=== PATIENT | female | born 1955 | race Caucasian/White ===

== ENCOUNTER 2020-12-01 03:14 | Inpatient (IN) | payer MEDICAID ==
[~2020-12-01] VITALS: Ht 160 cm; Wt 51.4 kg
[2020-12-01] VITALS (365 sets, daily range): BP systolic 113–144; BP diastolic 60–79; PULSE 73–76; TEMP 97.4–98.6; O2SAT 96–100
[~2020-12-01 03:14] MED LIST: ADVAIR 250/28 DISKUS IH; ADVAIR IH; ALBUTEROL0.09 MG/A1 IH; BACTRIM DS 8001 TAB PO; CATAPRES-TTS 10.1 M1 TD; CLEOCIN HCL300 MG PO; DOXYCYCLINE 10100 MG PO; HCTZ; HCTZ 25MG TAB25 MG PO; HCTZ12.5TAB PO; INCRUSE EL62.5 MCG/A IH; IPRATROPIUM BROM3 M1 IH; LISINOPRIL/HCTZ1 TA1 PO; LISINOPRIL/HCTZ1 TAB PO; MEDROL 4MG DOSPA4 MG PO; MUCINEX1200 MG PO; NEB MC; NICODERM C14 MG/PATC TD; NORCO 325 MG-51 TAB PO; NORVASC 5MG5 MG/TAB PO; PREDNISONE10 MG PO; PREDNISONE20 MG PO; PROAIR HFA0.09 MG/AC IH; RT ADVAIR HFA 1112 G IH; TAMIFLU 75MG75 MG PO; ZESTORETIC 25 M1 TAB PO; ZESTRIL 20MG TA20 MG PO; ZESTRIL40 MG PO; [UNRECOGNIZED DRUG - OTHER]
[2020-12-01 03:42] LABS: HEMOGLOBIN 12.3 g/dl (12.5-16.0); MEAN CELL VOLUME 92 fl (80.0-100.0); MEAN CORPUSCULAR HEMOGLOBIN 28 pg (27.0-31.0); MEAN CORPUSCULAR HGB CONC 30 g/dl (33.0-37.0); MEAN PLATELET VOLUME 9.8 fl (7.4-10.4); PLATELET COUNT 522 K/mm3 (130-400); RED BLOOD COUNT 4.48 M/mm3 (4.10-5.30); REDCELL DISTRIBUTION WIDTH-CV 14.6 % (11.5-14.5)
[2020-12-01 03:50] LABS: PROTHROMBIN TIME 11.3 SECONDS (9.7-12.8)
[2020-12-01 03:53] LABS: ALBUMIN 4.5 gm/dL (3.5-5.0); BILIRUBIN,TOTAL 0.5 mg/dL (0.0-1.0); CALCIUM 9.5 mg/dL (8.4-10.2); CREATININE, serum 1.29 (0.52-1.25); POTASSIUM 3.3 mmol/L (3.4-5.0); TOTAL PROTEIN 7.9 gm/dL (6.4-8.2)
[2020-12-01 04:00] LABS: EOSINOPHIL 4 % (0-4); HYPOCHROMIA 3+; LYMPHOCYTE 22 % (20.0-51.0); NEUTROPHILS 65 % (42.0-75.2); PLATELET ESTIMATE INCREASED (NORMAL)
[2020-12-01 04:02] LABS: SCHISTOCYTES 1+
[2020-12-01 04:04] LABS: C-REACTIVE PROTEIN 1.1 mg/dL (0.0-0.9)
[2020-12-01 04:10] LABS: TROPONIN-I 0.063 ng/mL (0.000-0.035)
[2020-12-01 04:15] LABS: COLLECTION METHOD IN
[2020-12-01 04:22] LABS: MUCOUS Present /lpf; PH 6 (5-8); URINE APPEARANCE Cloudy; URINE BACTERIA None Seen /hpf; URINE BILIRUBIN Negative (NEGATIVE); URINE BLOOD 1+ (NEGATIVE); URINE COLOR Yellow; URINE GLUCOSE 2+ (NEGATIVE); URINE KETONE Negative (NEGATIVE); URINE LEUKOCYTE ESTERASE Negative (NEGATIVE); URINE NITRATE Negative (NEGATIVE); URINE PROTEIN(semi-quant) 3+ (NEGATIVE); URINE RBC 20-50 /hpf; URINE UROBILINOGEN Negative (NEGATIVE)
[2020-12-01 04:29] LABS: ARTERIAL BLD GAS O2 SATURATION 96.1 % (92-100); ARTERIAL BLD GAS TCO2 CT 21.8; ARTERIAL BLOOD GAS HCO3 20.6 meq/L (22-26); ARTERIAL BLOOD GAS PCO2 40.1 mmHg (35-45); ARTERIAL BLOOD GAS PO2 86.2 mmHg (80-100); ARTERIAL BLOOD GAS pH 7.33 (7.35-7.45)
[2020-12-01] MEDS ORDERED: 00186-0370-20 IH (05:43)
[2020-12-01 09:50] LABS: BASO % 0.3 % (0.0-2.0); EOS % 0.1 % (0-4.0); GRAN % 83.6 % (42.2-75.2); HEMOGLOBIN 11.1 g/dl (12.5-16.0); LYMPH % 6.6 % (20.0-51.0); MEAN CELL VOLUME 88 fl (80.0-100.0); MEAN CORPUSCULAR HEMOGLOBIN 28 pg (27.0-31.0); MEAN CORPUSCULAR HGB CONC 32 g/dl (33.0-37.0); MEAN PLATELET VOLUME 9.9 fl (7.4-10.4); MONO # 1.4 (0.1-0.6); MONO % 9.1 % (1.7-9.3); RED BLOOD COUNT 4.01 M/mm3 (4.10-5.30); REDCELL DISTRIBUTION WIDTH-CV 14.4 % (11.5-14.5)
[2020-12-01 10:03] LABS: HEMATOCRIT 35.1 % (37.0-47.0); PLATELET COUNT 357 K/mm3 (130-400)
[2020-12-01 10:06] LABS: PARTIAL THROMBOPLASTIN TIME 26.3 SECONDS (26.0-37.0)
--- NOTE | 2020-12-01 10:30 | NUR ---
Sedation resumed at previous dosages per MD Acosta d/t aggitation and inability to follow all commands. Plan to discontinue sedation tomorrow morning at 0500 with precedex on standby for aggitation if required for weaning trial
--- NOTE | 2020-12-01 10:33 | NUR ---
First visit from the spindle frame carver. Chaplain shaffer for patient outside of door.
--- NOTE | 2020-12-01 11:25 | NUR ---
The patient is intubated. The clinical team attempted to extubate the patient, but she continues to be agitated and confused. They will reattempt tomorrow. The patient's life partner, Rey Baldwin, is listed as her person to notify. There is not a phone number on file for Rey. GABY contacted ENT and [facility] to try and inquire emergency contact phone numbers for the patient. These clinics were on file for the patient. The phone numbers they had on file were no longer Rey's or other family members phone numbers. GABY collaborated with the patient's RN and obtained the patient's phone. GABY obtained phone numbers for the patient's sons: Ravin Arteaga (ph#[phone]) and Ry Arteaga ([phone]). GABY contacted [facility] to complete intake. Ravin reports that he lives in [place]. He confirms that the patient was in [place] visiting him and his siblings a couple weeks ago. He reports that the patient lives in [place] with his life partner, Rey, of 30 plus years. He reports that the patient is independent with ADLs and does not have any DME. He states that he does not think that the patient has a PCP or a DPOA-HC completed. He reports that the patient is not and that she has four children: Ravin, Mitchell Hairston, Butch, and Andrey. They all live around [place], [place]. Ravin reports that the patient has COPD and is always very agitated, because of it. He states that he also believes that the patient has had strokes in the past, but that she never followed up with anyone for it. Ravin would like to speak to the patient's RN for an update. GABY transferred the call to the patient's RN. The patient's life partner, Rey, then contacted the ICU. The patient's RN transferred SW the phone call. Rey reports that he does not have a working phone. He reports that a friend, Juan M, is staying with them right now and that the hospital could call Juan M's phone to get ahold of him. . He confirms that the patient lives with him in [place] and has been independent. He is only aware of the patient following up with Dr. Ivory. He reports that be believes that the patient has a DPOA-HC and that she designated her other son, Mitchell. He reports that he does not have a copy of the document. Rey reports that he believes that the patient only has Medicaid. He reports that the patient received something in the mail a couple days ago, stating the patient was eligible for Medicare, but that she has not applied for it yet. GABY contacted Mitchell to inquire about the DPOA-HC. Mitchell reports that he believes the patient did complete a DPOA-HC awhile ago and designated him. He reports that he does not have a copy of the DPOA-HC though. GABY informed him that until we have that document, the patient's legal next of kin is all four of her children. Mitchell verbalized understanding. GABY updated the patient's RN on who next of kin is. *Discharge plan: unknown at this time, will continue to follow for recommendations*
[2020-12-01 11:35] LABS: ARTERIAL BLD GAS O2 SATURATION 98.4 % (92-100); ARTERIAL BLD GAS TCO2 CT 25.3; ARTERIAL BLOOD GAS BASE EXCESS 0.7 (-2-2); ARTERIAL BLOOD GAS HCO3 24.3 meq/L (22-26); ARTERIAL BLOOD GAS PCO2 35.3 mmHg (35-45); ARTERIAL BLOOD GAS PO2 110.7 mmHg (80-100); ARTERIAL BLOOD GAS pH 7.46 (7.35-7.45)
[2020-12-02] VITALS (725 sets, daily range): BP systolic 110–162; BP diastolic 57–104; PULSE 54–511; TEMP 97.2–99; O2SAT 87–100
[2020-12-02 03:45] LABS: PROCALCITONIN 2.03 ng/mL (0.00-0.09)
[2020-12-02 05:19] LABS: MEAN CELL VOLUME 88 fl (80.0-100.0); MEAN CORPUSCULAR HEMOGLOBIN 28 pg (27.0-31.0); MEAN CORPUSCULAR HGB CONC 32 g/dl (33.0-37.0); MEAN PLATELET VOLUME 10.1 fl (7.4-10.4); PLATELET COUNT 375 K/mm3 (130-400); RED BLOOD COUNT 3.55 M/mm3 (4.10-5.30)
[2020-12-02 05:26] LABS: HEMATOCRIT 31.1 % (37.0-47.0)
[2020-12-02 05:28] LABS: ALBUMIN 3.2 gm/dL (3.5-5.0); BILIRUBIN,TOTAL 0.2 mg/dL (0.0-1.0); CALCIUM 8.6 mg/dL (8.4-10.2); CREATININE, serum 2.42 (0.52-1.25); POTASSIUM 4.2 mmol/L (3.4-5.0)
[2020-12-02 05:35] LABS: ARTERIAL BLD GAS O2 SATURATION 98.5 % (92-100); ARTERIAL BLOOD GAS BASE EXCESS 1.1 (-2-2); ARTERIAL BLOOD GAS HCO3 24.8 meq/L (22-26); ARTERIAL BLOOD GAS PCO2 36.2 mmHg (35-45); ARTERIAL BLOOD GAS PO2 129.9 mmHg (80-100); ARTERIAL BLOOD GAS pH 7.45 (7.35-7.45)
[2020-12-02 05:41] LABS: TROPONIN-I 0.666 ng/mL (0.000-0.035)
[2020-12-02 05:43] LABS: MAGNESIUM 1.9 mg/dL (1.6-2.3)
[2020-12-02 05:51] LABS: ANISOCYTOSIS 1+; BAND 2 % (0-10); HYPOCHROMIA 1+; LYMPHOCYTE 8 % (20.0-51.0); NEUTROPHILS 82 % (42.0-75.2); PLATELET ESTIMATE NORMAL (NORMAL)
--- NOTE | 2020-12-02 08:08 | NUR ---
PROPOFOL AND FENT SLOWLY TITRATED PER INTESNSIVIST. PRECEDEX STARTED FOR HX OF AGITATION. PATIENT BREATHING WITH VENT UNTIL STIMULATED. PT BECAME AGITATED STAFF TRIED TO WAKE HER TO DO A BREATHING TRIAL THIS AM.
--- NOTE | 2020-12-02 09:00 | NUR ---
Since before arriving for shift, propofol and fentanyl paused with precedex infusing at 1.0mcg/kg/hr with ventilator on weaning trial. Pt having periods of severe aggiation with RR:40-50 and calm periods with RR:14-18 with good indications for extubation. MD Anai and MD Acosta agreed d/t pt's aggitation pt would be safer if kept on ventilator for cardiac cathertization - and therefore no weaning trial this after noon but to be completed tomorrow morning. Sedation resumed at this time at prior dosages per MD Acosta
--- NOTE | 2020-12-02 10:07 | NUR ---
Pt tolerated transport to cathlab, procedure, and trasport back to ICU without difficulty - transport staff: RT Delaney, Alexandrea,RN and myself. Continuous IV sedation maintained during procedure without need for additional sedation.
--- NOTE | 2020-12-02 19:30 | NUR ---
Received report from HUEY Jerez. All medications verified and all questions answered. Patient intubated and sedated. VSS. No concerns or complaints noted at this time. Will resume care of patient.
--- NOTE | 2020-12-02 20:00 | NUR ---
Unable to complete suicide risk assessment screening d/t patient being intubated and sedated.
--- NOTE | 2020-12-02 23:00 | NUR ---
Last remaining 3mls released out of TR band and TR band taken off 15 minutes after releasing remaining 3mls of air. No hematoma noted. Puncture site has bandaid placed on top of site. Appears CDI.
[2020-12-03] VITALS (450 sets, daily range): BP systolic 129–252; BP diastolic 62–131; PULSE 55–109; TEMP 97.5–99; O2SAT 89–100
[2020-12-03 05:17] LABS: BASO # 0.1 (0.0-0.2); BASO % 0.6 % (0.0-2.0); EOS # 0.1 (0.0-0.7); EOS % 0.6 % (0-4.0); GRAN # 5.2 (1.4-6.5); GRAN % 57.1 % (42.2-75.2); LYMPH # 2.2 (1.2-3.4); LYMPH % 24.8 % (20.0-51.0); MEAN CELL VOLUME 86 fl (80.0-100.0); MEAN CORPUSCULAR HGB CONC 32 g/dl (33.0-37.0); MEAN PLATELET VOLUME 10.5 fl (7.4-10.4); MONO # 1.5 (0.1-0.6); MONO % 16.6 % (1.7-9.3); PLATELET COUNT 289 K/mm3 (130-400); RED BLOOD COUNT 3.42 M/mm3 (4.10-5.30); REDCELL DISTRIBUTION WIDTH-CV 15.5 % (11.5-14.5)
[2020-12-03 05:20] LABS: HEMATOCRIT 29.4 % (37.0-47.0); HEMOGLOBIN 9.4 g/dl (12.5-16.0); MEAN CORPUSCULAR HEMOGLOBIN 27 pg (27.0-31.0)
[2020-12-03 05:34] LABS: ARTERIAL BLD GAS O2 SATURATION 98.6 % (92-100); ARTERIAL BLD GAS TCO2 CT 22.2; ARTERIAL BLOOD GAS BASE EXCESS -2.1 (-2-2); ARTERIAL BLOOD GAS HCO3 21.2 meq/L (22-26); ARTERIAL BLOOD GAS PCO2 31.4 mmHg (35-45); ARTERIAL BLOOD GAS pH 7.45 (7.35-7.45)
[2020-12-03 05:35] LABS: ARTERIAL BLOOD GAS PO2 137.3 mmHg (80-100)
[2020-12-03 05:37] LABS: ALBUMIN 3.3 gm/dL (3.5-5.0); BILIRUBIN,TOTAL 0.3 mg/dL (0.0-1.0); CALCIUM 8.5 mg/dL (8.4-10.2); CREATININE, serum 2.95 (0.52-1.25); POTASSIUM 3.6 mmol/L (3.4-5.0); TOTAL PROTEIN 6.2 gm/dL (6.4-8.2)
[2020-12-03 05:41] LABS: MAGNESIUM 2.1 mg/dL (1.6-2.3)
--- NOTE | 2020-12-03 05:57 | NUR ---
Fentanyl and propofol gtts shut off for sedation vacation. Precedex started at 2.5mls/hr. Patient appears drowsy and calm. VSS.
--- NOTE | 2020-12-03 06:29 | NUR ---
Patient propofol and fentanyl gtts restarted d/t patient becoming increasingly agitated and HR tachying up into the 100-110s. BP increasing d/t agitation and raning 215-241 systolic to 112-131 diastolic. Precedex increased to 5.1mls/hr while trying to titrate sedation medication down.
--- NOTE | 2020-12-03 07:00 | NUR ---
Pt is intubated, on propofol, fent, precedex. Attempting to wean sedation for vent weaning trial but bp elevated in the 200's. Will continue to monitor
--- NOTE | 2020-12-03 09:30 | NUR ---
PRECEDEX DOWN TO 0.7 MCG/KG/MIN PER /
[2020-12-03 10:43] LABS: ARTERIAL BLD GAS O2 SATURATION 96.6 % (92-100); ARTERIAL BLD GAS TCO2 CT 22.6; ARTERIAL BLOOD GAS BASE EXCESS -3.8 (-2-2); ARTERIAL BLOOD GAS HCO3 21.4 meq/L (22-26); ARTERIAL BLOOD GAS PCO2 39.7 mmHg (35-45); ARTERIAL BLOOD GAS PO2 95.2 mmHg (80-100); ARTERIAL BLOOD GAS pH 7.35 (7.35-7.45)
--- NOTE | 2020-12-03 11:31 | NUR ---
0815-SEDATION OFF PER . PRECEDEX STILL RUNNING. 0843-PT OPENS EYES AND FOLLOWS COMMANDS. PT PLACED ON CPAP TRIAL. PT'S BP ELEVATED IN THE 200'S. AWARE. ORDER TO GIVE PRN IV HYDRALAZINE. 0850-PT EXTUBATED WITHOUT COMPLICATION AND PLACED ON OXYMASK. PT IS LETHARGIC BUT ABLE TO FOLLOW COMMANDS. WILL CONTINUE TO MONITOR CLOSELY.
--- NOTE | 2020-12-03 11:34 | NUR ---
0915-PTS BP STILL ELEVATED. ORDER RECEIVED FOR LABETOLOL DRIP. 1030- ORDERS FOR PO LABETOLOL, PRN HYDRALAZINE, AND LASIX. MEDS GIVEN AND LABETOLOL DRIP STOPPED. PT IS STILL LETHARGIC AND RESTLESS. PT'S SON STATES THIS IS HER BASELINE. SHE IS NORMALLY NOT ABLE TO COMMUNICATE WELL, IS RESTLESS AND AGITATED. SON BEDSIDE. BEDALARM ACTIVE. WILL CONTINUE TO [facility]. 1120-PALLATIVE CARE CONSULT.
--- NOTE | 2020-12-03 14:12 | NUR ---
I met with pt and her son Ravin at bedside this morning. Pt appears agitated at times, her speech is limited and at times difficult to understand. Her son Ravin reports to me that her sons and brother have all talked with each other and he reports that they would not want her re-intubated if her situation should worsen again. At this time the patient spoke up and clearly stated "I want to live".Then son asked if she would want the tube put back even if it meant she could never go home, she replied "yes". When questioned, Ravin reports that how we see her now is her normal. Two weeks ago when he saw her in [place], she was like this as well. She has not behaved differently for some time. Ravin reports he questions if his mother has had a stroke in the past. She has not been good about seeking health care support. She has lived with Rey Baldwin for almost 30 years. Her sons and brother are hoping to take her home with them to [place] once she is considered stable enough for the trip. Ravin again verbalized that he didn't believe that Anca really understood what being placed back on the vent would mean. Ravin's phone number is [phone], Ry (Mitchell) phone # is [phone], and Butch's phone # is [phone]. Their brother Andrey does not have a phone but Ravin reports that the family can get ahold of him if needed. This information was shared with Alissa in social work and with Tayler ARZATE primary nurse.
--- NOTE | 2020-12-03 14:26 | NUR ---
Pt has several dogs and enjoys watching TV. These are the things that her son reports gives her pleasure. She is not active outside the home a lot.
--- NOTE | 2020-12-03 15:49 | NUR ---
The patient has been extubated. A palliative care consult was ordered. Yazmin, palliative care nurse, met with the patient and her son, Ravin. The patient informed Yazmin that she wants to live. Ravin reports that her level of functioning now is her normal and that she has a lot of anxiety. Ravin would like to take the patient back home to [place]. Ravin provided Yazmin with his brother, Hamzah, phone number [phone]. The fourth brother, Andrey, does not have a phone, but they are able to get ahold of him. GABY met with the patient, Ravin, and the patient's life partner and introduced oneself. Ravin reports that they would like to see how the patient does these next couple of days before deciding on direction of care. GABY to continue to follow.
--- NOTE | 2020-12-03 18:49 | NUR ---
SPOKE WITH NEL PULIDO REGARDING PT'S BP IN THE 190'S AFTER PRN HYDRALAZINE AND PRN LABETALOL. STATES SHE WILL REVEIW CHART.
[2020-12-03 20:17] LABS: ARTERIAL BLD GAS O2 SATURATION 94.2 % (92-100); ARTERIAL BLD GAS TCO2 CT 21.2; ARTERIAL BLOOD GAS HCO3 20.1 meq/L (22-26); ARTERIAL BLOOD GAS PCO2 33.5 mmHg (35-45); ARTERIAL BLOOD GAS PO2 73.4 mmHg (80-100)
--- NOTE | 2020-12-03 21:28 | NUR ---
2015: Assessment completed. Patient voiced need to urinate. Patient unsuccessful x5 tries since 1930. Patient bladder scanned and 612 in bladder. Patient also voicing nausea. Spoke with TESS Tee. Orders for zofran and to insert sevilla given and also add UA. 2019. Zofran given and sevilla inserted. Patient had 550ml of urine out in sevilla. UA sent. Patient given pills crushed in applesause. Patient swallowed on bite and spit other bite on bed. Patient reported she cannot take these medications and to give her something else. Patient BP at 1930 227/103 at 194 199/80. After sevilla insertion and zofran adminstration BP now 156/66. Patient resting in bed comfortably. Precedex gtt decreased. Call light in reach. Bed alarm in place.
[2020-12-03 21:47] LABS: COLLECTION METHOD IN
[2020-12-03 21:54] LABS: PH 5 (5-8); SQUAMOUS EPITHELIAL None Seen /hpf; URINE APPEARANCE Clear; URINE BACTERIA None Seen /hpf; URINE BILIRUBIN Negative (NEGATIVE); URINE BLOOD 2+ (NEGATIVE); URINE COLOR Straw; URINE GLUCOSE Negative (NEGATIVE); URINE KETONE Negative (NEGATIVE); URINE LEUKOCYTE ESTERASE Negative (NEGATIVE); URINE NITRATE Negative (NEGATIVE); URINE PROTEIN(semi-quant) Negative (NEGATIVE); URINE RBC >50 /hpf; URINE UROBILINOGEN Negative (NEGATIVE)
--- NOTE | 2020-12-03 22:57 | NUR ---
Patient placed on 1.5 liters for oxygen saturations 86% while sleeping
[2020-12-04] VITALS (692 sets, daily range): BP systolic 123–169; BP diastolic 51–97; PULSE 63–74; TEMP 97.1–98.3; O2SAT 84–100
[2020-12-04 06:28] LABS: POTASSIUM 3.6 mmol/L (3.4-5.0)
--- NOTE | 2020-12-04 07:29 | NUR ---
Patient continued on precedex throughout night, awake and alert. Patient resting in bed this AM. Call light in reach. Report given to HUEY Mar
[2020-12-04 08:04] LABS: BASO % 0.3 % (0.0-2.0); EOS % 0.4 % (0-4.0); GRAN # 7.8 (1.4-6.5); GRAN % 75.6 % (42.2-75.2); LYMPH # 0.9 (1.2-3.4); LYMPH % 9.1 % (20.0-51.0); MEAN CELL VOLUME 88 fl (80.0-100.0); MEAN CORPUSCULAR HEMOGLOBIN 28 pg (27.0-31.0); MEAN CORPUSCULAR HGB CONC 32 g/dl (33.0-37.0); MEAN PLATELET VOLUME 10.9 fl (7.4-10.4); MONO # 1.5 (0.1-0.6); MONO % 14.4 % (1.7-9.3); PLATELET COUNT 266 K/mm3 (130-400); RED BLOOD COUNT 3.53 M/mm3 (4.10-5.30); REDCELL DISTRIBUTION WIDTH-CV 15.7 % (11.5-14.5)
[2020-12-04 08:05] LABS: HEMATOCRIT 31.2 % (37.0-47.0)
[2020-12-04 08:09] LABS: CREATININE, serum 2.45 (0.52-1.25); POTASSIUM 3.8 mmol/L (3.4-5.0)
--- NOTE | 2020-12-04 10:36 | NUR ---
SW collaborated with the clinical team. A psych consult has been ordered to determine capacity. The psychiatrist, Dr. Al, is damage prevention coordinator this weekend.
--- NOTE | 2020-12-04 10:38 | NUR ---
I spoke with pt today at bedside. She has the same manner as yesterday. She has a blank looking stare although will speak a few words in response to questions. She is still drooling at times and seems confused by her current situation. I did speak with Dr Graff about a capacity determination when appropriate as I am questioning her ability to really understand her situation and make her own decisions. She is currently on precedex but will hope to have evaluation later on to help clarify her situation.
--- NOTE | 2020-12-04 13:25 | NUR ---
PT SOMEWHAT COMBATIVE AND DID NOT WANT TX. WOULD NOT KEEP MASK OVER FACE. TOOK MAYBE HALF OF TX BEFORE SHOVING MASK AND RT AWAY.
--- NOTE | 2020-12-04 16:36 | NUR ---
patient report given to HUEY Arce.
--- NOTE | 2020-12-04 17:19 | NUR ---
Patient to room 325 from ICU 3. Family at the bedside. Nurse oriented the patient and family to location, room and call light. Assessment complete. Patient A&Ox3. Denies pain and discomfort. IV CDI. VSS 1.5L NC O2. No reported SOB. Family assisting patient with eatting dinner. No further needs expressed from the patient. Call light within reach
--- NOTE | 2020-12-04 17:47 | NUR ---
Patient sitting up in bed talking with family at the bedside. Nurse reordered the patient dinner, states that she did not like the food brought up. IV CDI. A&Ox3. Denies pain and discomfort. No further needs expressed from the patient. Call light within reach
--- NOTE | 2020-12-04 19:30 | NUR ---
PT RESTING PERIODICALLY. NO RESP DISTRESS. O2 0.5L. SATS 95%. PT SPEECH DIFFICULT TO UNDERSTAND. POOR DENTATION. SLOW MENTATION BUT ORIENTED. INT NEEDLE TO LT F/A INFILTRATED AND DC'D AT THIS TIME. INT TO RAC FLUSHES AND RESECURED. CALL LIGHT IN REACH. BED ALARM SET.
--- NOTE | 2020-12-04 19:45 | NUR ---
PT ANXIOUS. GAVE ATIVAN PER IV. SEE MAR.
[2020-12-04 20:56] LABS: TRICYCLIC ANTIDEPRESS URINE NEGATIVE
--- NOTE | 2020-12-04 22:15 | NUR ---
PT DOWN TO CT PER BED. PT CLIMBING OFF CT TABLE. REFUSED AFTER SEVERAL ATTEMPTS. PT BROUGHT BACK TO ROOM.
[2020-12-05 01:06] VITALS: BP 162/88; PULSE 66; TEMP 97.5
[2020-12-05 04:27] VITALS: BP 194/79; PULSE 69; TEMP 98.4
[2020-12-05 08:16] VITALS: BP 204/69; PULSE 76; TEMP 98.6
--- NOTE | 2020-12-05 08:40 | NUR ---
TX REFUSED BY FAMILY; PT SLEEPING
--- NOTE | 2020-12-05 10:00 | NUR ---
Patient Bp elevated. Am meds given. [facility] team made aware. Patient family at bedside. She has sat up in chair this am , worked with therapy. Ate a small amount of breakfast. Will monitor.
[2020-12-05 10:57] LABS: MEAN CELL VOLUME 87 fl (80.0-100.0); MEAN CORPUSCULAR HGB CONC 32 g/dl (33.0-37.0); PLATELET COUNT 336 K/mm3 (130-400); RED BLOOD COUNT 3.57 M/mm3 (4.10-5.30); REDCELL DISTRIBUTION WIDTH-CV 15.4 % (11.5-14.5)
[2020-12-05 11:02] LABS: HEMATOCRIT 31.1 % (37.0-47.0); HEMOGLOBIN 9.9 g/dl (12.5-16.0); MEAN CORPUSCULAR HEMOGLOBIN 28 pg (27.0-31.0)
[2020-12-05 11:10] LABS: CALCIUM 8.8 mg/dL (8.4-10.2); CREATININE, serum 1.72 (0.52-1.25); POTASSIUM 3.5 mmol/L (3.4-5.0)
[2020-12-05 11:48] LABS: LYMPHOCYTE 11 % (20.0-51.0); NEUTROPHILS 77 % (42.0-75.2)
[2020-12-05 11:49] LABS: ANISOCYTOSIS 1+; PLATELET ESTIMATE NORMAL (NORMAL)
[2020-12-05 11:50] LABS: HYPOCHROMIA 2+
[2020-12-05 12:02] VITALS: BP 162/55; PULSE 66; TEMP 97.9
--- NOTE | 2020-12-05 12:20 | NUR ---
Patient resting in bed. Family at bedside. Bp improvided, but still elevated. Bp meds as ordered. Medication adjustement made by [facility]. Ate a small amount of lunch.
[2020-12-05 16:12] VITALS: BP 174/62; PULSE 71; TEMP 97.6
--- NOTE | 2020-12-05 16:31 | NUR ---
SW attempted to have POA PPW but patient report that she cannot sign, educated that she must sign the paperwork.
--- NOTE | 2020-12-05 16:56 | NUR ---
Patient resting in bed. Up to bedside commode post sevilla removal. She voided a very small amount. Patient noted to have a very strong vaginal odor. White discharge seen. Dr. Graff made aware of possible yeast infection. I did again speak with patient about Ct scan ordered. She is addement & refusing. I reviewed Heparin injection with patient. Bp meds given for continued elevated Bp. Will continue to monitor
--- NOTE | 2020-12-05 18:59 | NUR ---
Patient resting in bed. She ate minimally. Provided with warm blanket for comfort. Bedside report to Mary ARZATE.
--- NOTE | 2020-12-05 19:15 | NUR ---
SEE NEW ORDER FOR PO LORAZEPAM. SEE MAR GIVEN. PT ANXIOUS AND GETTING IMPULSIVE.
--- NOTE | 2020-12-05 19:46 | NUR ---
PT NOT AGEEABLE TO MONOSTAT VAG CREAM. SHEREE OG NOTIFIED. SEE NEW ORDER.
[2020-12-05 19:51] VITALS: BP 152/96; PULSE 78; TEMP 98
--- NOTE | 2020-12-05 21:35 | NUR ---
PT WOULD NOT KEEP NEBULIZER MASK IN PLACE.
[2020-12-06 00:44] VITALS: BP 157/58; PULSE 68; TEMP 98.2
[2020-12-06 03:32] VITALS: BP 138/69; PULSE 68; TEMP 98.2
[2020-12-06 06:29] LABS: BASO % 0.3 % (0.0-2.0); EOS # 0.1 (0.0-0.7); EOS % 1.7 % (0-4.0); GRAN # 4.3 (1.4-6.5); GRAN % 64.7 % (42.2-75.2); LYMPH # 1.1 (1.2-3.4); LYMPH % 17.4 % (20.0-51.0); MEAN CELL VOLUME 89 fl (80.0-100.0); MEAN CORPUSCULAR HGB CONC 32 g/dl (33.0-37.0); MEAN PLATELET VOLUME 10.2 fl (7.4-10.4); MONO % 15.7 % (1.7-9.3); PLATELET COUNT 306 K/mm3 (130-400); RED BLOOD COUNT 3.26 M/mm3 (4.10-5.30); REDCELL DISTRIBUTION WIDTH-CV 15.6 % (11.5-14.5)
[2020-12-06 06:35] LABS: HEMATOCRIT 28.9 % (37.0-47.0); HEMOGLOBIN 9.1 g/dl (12.5-16.0); MEAN CORPUSCULAR HEMOGLOBIN 28 pg (27.0-31.0)
[2020-12-06 06:37] LABS: CALCIUM 8.8 mg/dL (8.4-10.2); CREATININE, serum 1.45 (0.52-1.25); POTASSIUM 3.2 mmol/L (3.4-5.0)
[2020-12-06 08:02] VITALS: BP 190/82; PULSE 43; TEMP 98.3
--- NOTE | 2020-12-06 08:30 | NUR ---
PT resting in bed. Ate some of her breakfast, pt appears to still be very sleepy. Assisted to the restroom. She wanted to use the commode, told her to try and walk to the restroom. She did well with one assist. No needs verbalized
[2020-12-06 12:29] VITALS: BP 155/59; PULSE 67; TEMP 98.4
--- NOTE | 2020-12-06 13:00 | NUR ---
Pt has continued to sleep the majority of the day. Her son was here earlier but has recently left.
--- NOTE | 2020-12-06 15:37 | NUR ---
Pt continues to sleep most of the time. Her son and partner are both in the room. Asked about antibiotics once she goes home. Dr Wagner ordered to stop antibiotics after the evening dose, informed them of this. They hope and plan to take pt home tomorrow. No other questions
[2020-12-06 15:41] VITALS: BP 165/65; PULSE 76; TEMP 98.7
--- NOTE | 2020-12-06 16:54 | NUR ---
Pt requesting her dinner, dinner ordered. She also asked if she could have a sleeping pill. Pt has been sleeping most of the day. Informed her that I would pass on to nights if she was not able to sleep. All visitors have left at this time
[2020-12-06 19:53] VITALS: BP 177/89; PULSE 72; TEMP 98.2
--- NOTE | 2020-12-06 21:00 | NUR ---
PT RESTING IN BED. NONPRODUCTIVE COUGH NOTED. STILL HAVING ODOROUS VAG DRG. DENIES PAIN. SEE MAR FOR LORAZEPAM GIVEN FOR ANXIETY. PT UP TO BR TO VOIDING SL HAZY YELLOW URINE. CALL LIGHT IN REACH. BED ALARM SET.
[2020-12-07 00:08] VITALS: BP 141/65; PULSE 65; TEMP 97.7
[2020-12-07 04:01] VITALS: BP 159/96; PULSE 95; TEMP 98.6
[2020-12-07 08:08] VITALS: BP 188/100; PULSE 71; TEMP 98.3
[2020-12-07 08:29] LABS: CALCIUM 9.1 mg/dL (8.4-10.2); CREATININE, serum 1.26 (0.52-1.25); POTASSIUM 3.7 mmol/L (3.4-5.0)
--- NOTE | 2020-12-07 09:24 | NUR ---
Patient up to the bathroom. Voided. Needs prompting to use walker. high fall risk protocol followed. Wanting to rest at this time. Her son at bedside. interested in discharge. Patient BP remains elevated. am meds given with sip of water. She has minimal interest in breakfast. k+ replacement per protocol. Will continue to moniotr, but let her rest.
[2020-12-07] MEDS ORDERED: LIPITOR 80MG80 MG PO (09:53)
[2020-12-07] MEDS ORDERED: APRESOLINE50 MG PO (09:53)
[2020-12-07] MEDS ORDERED: TRANDATE 200MG200 MG PO (09:54)
[2020-12-07] MEDS ORDERED: NORVASC 10MG10 MG PO (09:54)
[2020-12-07] MEDS ORDERED: ASPIRIN E.C. 8181 MG PO (09:54)
[2020-12-07] MEDS ORDERED: IMDUR 60MG60 MG/TAB PO (09:54)
[2020-12-07] MEDS ORDERED: CATAPRES 0.1MG0.1 MG PO (09:56)
[2020-12-07 12:08] VITALS: BP 160/59; PULSE 68; TEMP 97.4
--- NOTE | 2020-12-07 12:11 | NUR ---
Spoke with son and Anca today at bedside. They are anticipating discharge soon and pt and her other son will remain in here to allow her to get stronger and then she plans to return to [place] with her son. Pt reports that she will need a walker at discharge and thinks she has already talked with the staff about that.
--- NOTE | 2020-12-07 14:00 | NUR ---
Patient ready for discharge. Attempted to given extensive discharge teaching, but patient just wanting to leave. She was not interested in the information I provided. I did review paperwork with her son who is assisting with cares. We reviewed all follow up appts. (he plans to take her to the appts.) We reviewed home meds list & last dose taken. Son to tack picker scripts [facility]. I did stress with patient importance of only taking medication prescribed by doctor no other drugs and the importance of this. I reviewed soft diet. Int DC. Patient was wheeled out with all belongings. son taking her home. denies questions and concerns.
--- NOTE | 2020-12-07 14:06 | NUR ---
The patient to discharge home today, 12/07 with OP PT at [facility]. The OP PT appointment is set for , 12/10 at 1430. The patient to move to [place] with her son Ravin in approximately two weeks. The patient is needing a walker. The walker order faxed to [facility]. The patient's son Ravin agreeable to picking up the walker. The patient is on room air. The patient completed a DPOA-HC form. This SW and the patient's nurse witnessed. The patient designated her son, Ravin . The patient's new contact information is . GABY faxed updates and discharge orders to Smitha at [facility]. GABY collaborated the above information with the patient's nurse. There are no other needs at this time.
[2020-12-07 14:29] LABS: COCCIDIOIDES AB IGG Negative (Negative); COCCIDIOIDES AB IGM Negative (Negative); COCCIDIOIDES CF Negative (Negative)
== END 2020-12-07 15:38 | disposition home or self-care (01) | DRG 208 ==
LOC: COL.ER 03:15 → EDBD 03:15 → COL.ER 03:31 → ICU 04:48 → SURG 04:48
PROVIDERS: Emergency Medicine; Internal Medicine Adult Congenital Heart Disease; Internal Medicine Pulmonary Disease; Student in an Organized Health Care Education/Training Program; ADMIT Hospitalist
PROC: 0BH17EZ Insertion of Endotracheal Airway into Trachea, Via Natural or Artificial Opening (ICD-10-PCS; principal; 2020-12-01)
PROC: 5A1945Z Respiratory Ventilation, 24-96 Consecutive Hours (ICD-10-PCS; 2020-12-01)
PROC: 4A023N7 Measurement of Cardiac Sampling and Pressure, Left Heart, Percutaneous Approach (ICD-10-PCS; 2020-12-02)
PROC: B2111ZZ Fluoroscopy of Multiple Coronary Arteries using Low Osmolar Contrast (ICD-10-PCS; 2020-12-02)
DX: J96.21 Acute and chronic respiratory failure with hypoxia (principal); I21.A1 Myocardial infarction type 2; I50.23 Acute on chronic systolic (congestive) heart failure; J44.1 Chronic obstructive pulmonary disease with (acute) exacerbation; I13.0 Hypertensive heart and chronic kidney disease with heart failure and stage 1 through stage 4 chronic kidney disease, or unspecified chronic kidney disease; N17.9 Acute kidney failure, unspecified; I42.8 Other cardiomyopathies; R65.10 Systemic inflammatory response syndrome (SIRS) of non-infectious origin without acute organ dysfunction; J96.22 Acute and chronic respiratory failure with hypercapnia; E87.5 Hyperkalemia; R13.10 Dysphagia, unspecified; Z20.822 Contact with and (suspected) exposure to COVID-19; I16.0 Hypertensive urgency; E87.70 Fluid overload, unspecified; N18.9 Chronic kidney disease, unspecified; R45.1 Restlessness and agitation; Z86.73 Personal history of transient ischemic attack (TIA), and cerebral infarction without residual deficits; F17.210 Nicotine dependence, cigarettes, uncomplicated; Z91.14 Patient's other noncompliance with medication regimen; F19.10 Other psychoactive substance abuse, uncomplicated
CPT/HCPCS: 99222-AI; 99231-AI; 99232-AI; 99233-AI; 99239; C1769; C9113; J0330; J0360; J0456; J0696; J1644; J1940; J2060; J2405; J2704; J2930; J3010; J3480; J7050; Q9967

== ENCOUNTER 2021-01-19 17:30 | Emergency (ER) | payer MEDICAID ==
[~2021-01-19] VITALS: Ht 152.4 cm; Wt 54.5 kg
[~2021-01-19 17:30] MED LIST changes: +00186-0370-20 IH; +APRESOLINE50 MG PO; +ASPIRIN E.C. 8181 MG PO; +CATAPRES 0.1MG0.1 MG PO; +IMDUR 60MG60 MG/TAB PO; +LIPITOR 80MG80 MG PO; +NORVASC 10MG10 MG PO; +TRANDATE 200MG200 MG PO
[2021-01-19 17:34] VITALS: TEMP 97.4
[2021-01-19 18:38] LABS: BASO # 0.1 (0.0-0.2); BASO % 0.5 % (0.0-2.0); EOS # 0.2 (0.0-0.7); EOS % 1.2 % (0-4.0); HEMOGLOBIN 11.3 g/dl (12.5-16.0); LYMPH # 1.1 (1.2-3.4); LYMPH % 8.9 % (20.0-51.0); MEAN CELL VOLUME 90 fl (80.0-100.0); MEAN CORPUSCULAR HEMOGLOBIN 28 pg (27.0-31.0); MEAN CORPUSCULAR HGB CONC 32 g/dl (33.0-37.0); MEAN PLATELET VOLUME 9.8 fl (7.4-10.4); MONO # 1.1 (0.1-0.6); MONO % 8.9 % (1.7-9.3); PLATELET COUNT 282 K/mm3 (130-400); RED BLOOD COUNT 4.01 M/mm3 (4.10-5.30); REDCELL DISTRIBUTION WIDTH-CV 14.2 % (11.5-14.5)
[2021-01-19 18:40] LABS: HEMATOCRIT 35.9 % (37.0-47.0)
[2021-01-19 18:48] LABS: ALBUMIN 3.7 gm/dL (3.5-5.0); BILIRUBIN,TOTAL 0.2 mg/dL (0.0-1.0); CALCIUM 8.6 mg/dL (8.4-10.2); CREATININE, serum 1.01 (0.52-1.25); TOTAL PROTEIN 6.6 gm/dL (6.4-8.2)
[2021-01-19 18:55] LABS: INR 0.9 (0.8-3.0); PROTHROMBIN TIME 10.1 SECONDS (9.7-12.8)
[2021-01-19 19:01] LABS: TROPONIN-I 0.023 ng/mL (0.000-0.035)
[2021-01-19] MEDS ORDERED: LASIX 20MG TABL20 MG PO (19:57)
[2021-01-19 20:15] VITALS: BP 140/56; PULSE 65
[2021-01-19] MEDS ORDERED: PRINIVIL10 MG PO (21:52)
== END 2021-01-19 21:57 | disposition home or self-care (01) ==
LOC: COL.ER 17:30
PROVIDERS: Nurse Practitioner Primary Care
DX: J12.9 Viral pneumonia, unspecified (principal); I50.9 Heart failure, unspecified; I11.0 Hypertensive heart disease with heart failure; J43.9 Emphysema, unspecified; F17.210 Nicotine dependence, cigarettes, uncomplicated; Z79.899 Other long term (current) drug therapy
CPT/HCPCS: J7030

== ENCOUNTER 2021-02-05 00:46 | Inpatient (IN) | payer MEDICAID ==
[2021-02-05] VITALS (334 sets, daily range): BP systolic 108–175; BP diastolic 58–96; PULSE 77–90; TEMP 97.8–98.6; O2SAT 94–100
[~2021-02-05] VITALS: Ht 160 cm; Wt 54.1 kg
[~2021-02-05 00:46] MED LIST changes: +LASIX 20MG TABL20 MG PO; +PRINIVIL10 MG PO
[2021-02-05 01:02] LABS: BASO # 0.2 (0.0-0.2); BASO % 1.2 % (0.0-2.0); EOS # 0.4 (0.0-0.7); EOS % 2.3 % (0-4.0); GRAN % 65.5 % (42.2-75.2); HEMATOCRIT 45.6 % (37.0-47.0); HEMOGLOBIN 13.4 g/dl (12.5-16.0); LYMPH # 4.2 (1.2-3.4); LYMPH % 22.7 % (20.0-51.0); MEAN CELL VOLUME 94 fl (80.0-100.0); MEAN CORPUSCULAR HEMOGLOBIN 28 pg (27.0-31.0); MEAN CORPUSCULAR HGB CONC 29 g/dl (33.0-37.0); MEAN PLATELET VOLUME 9.9 fl (7.4-10.4); MONO # 1.4 (0.1-0.6); MONO % 7.7 % (1.7-9.3); PLATELET COUNT 587 K/mm3 (130-400); RED BLOOD COUNT 4.85 M/mm3 (4.10-5.30)
[2021-02-05 01:14] LABS: ALBUMIN 4.7 gm/dL (3.5-5.0); BILIRUBIN,TOTAL 0.5 mg/dL (0.0-1.0); CALCIUM 9.1 mg/dL (8.4-10.2); CREATININE, serum 1.25 (0.52-1.25); POTASSIUM 4.8 mmol/L (3.4-5.0); TOTAL PROTEIN 8.8 gm/dL (6.4-8.2)
[2021-02-05 01:31] LABS: TROPONIN-I 0.062 ng/mL (0.000-0.035)
[2021-02-05 01:34] LABS: C-REACTIVE PROTEIN 1.9 mg/dL (0.0-0.9)
[2021-02-05 01:57] LABS: COLLECTION METHOD CATHETER
[2021-02-05 02:03] LABS: MUCOUS Present /lpf; PH 7 (5-8); SQUAMOUS EPITHELIAL 0-2 /hpf; URINE APPEARANCE Clear; URINE BACTERIA None Seen /hpf; URINE BILIRUBIN Negative (NEGATIVE); URINE BLOOD Negative (NEGATIVE); URINE COLOR Straw; URINE GLUCOSE 2+ (NEGATIVE); URINE KETONE Negative (NEGATIVE); URINE LEUKOCYTE ESTERASE Negative (NEGATIVE); URINE NITRATE Negative (NEGATIVE); URINE PROTEIN(semi-quant) 3+ (NEGATIVE); URINE RBC 0-2 /hpf; URINE UROBILINOGEN Negative (NEGATIVE)
[2021-02-05 02:08] LABS: ARTERIAL BLOOD GAS HCO3 20.8 meq/L (22-26); ARTERIAL BLOOD GAS PCO2 54.1 mmHg (35-45); ARTERIAL BLOOD GAS PO2 122.4 mmHg (80-100)
[2021-02-05 02:09] LABS: ARTERIAL BLD GAS O2 SATURATION 97.9 % (92-100); ARTERIAL BLOOD GAS BASE EXCESS -7.7 (-2-2)
[2021-02-05] MEDS ORDERED: PROAIR HFA0.09 MG/AC IH (03:09)
[2021-02-05] MEDS ORDERED: IPRATROPIUM BROM3 M1 IH (03:10)
[2021-02-05] MEDS ORDERED: ASPIRIN 81M81 MG/TA2 PO (03:10)
[2021-02-05] MEDS ORDERED: LIPITOR 80MG80 MG PO (03:10)
[2021-02-05] MEDS ORDERED: RT ADVAIR HFA 1112 G IH (03:11)
[2021-02-05] MEDS ORDERED: APRESOLINE50 MG PO (03:11)
[2021-02-05] MEDS ORDERED: CATAPRES 0.1MG0.1 MG PO (03:11)
[2021-02-05] MEDS ORDERED: IMDUR 60MG60 MG/TAB PO (03:11)
[2021-02-05] MEDS ORDERED: NORMODYNE200 MG PO (03:12)
[2021-02-05] MEDS ORDERED: PRINIVIL10 MG PO (03:12)
--- NOTE | 2021-02-05 03:48 | NUR ---
Patient to ICU #8 from the ED. 7.5 ETT 22cm at lip. Patient on ventilator AC, FiO2 70%, TV 450, Peep 5. OG tube to LIS with coffee ground secretions noted. JOAQUIN Logan at bedside.
[2021-02-05 04:22] LABS: ARTERIAL BLD GAS O2 SATURATION 96.7 % (92-100); ARTERIAL BLD GAS TCO2 CT 21.3; ARTERIAL BLOOD GAS BASE EXCESS -4.8 (-2-2); ARTERIAL BLOOD GAS HCO3 20.2 meq/L (22-26); ARTERIAL BLOOD GAS PO2 85.8 mmHg (80-100); ARTERIAL BLOOD GAS pH 7.35 (7.35-7.45)
--- NOTE | 2021-02-05 05:00 | NUR ---
Sedation vacation not performed; patient intubated in last 6 hours.
--- NOTE | 2021-02-05 05:51 | NUR ---
Vancomycin Initial Dosing Pharmacy Note Ordering provider: Luzmaria Padilla DO 65 YO F Indication/duration: POSSIBLE PNA / 7 DAYS PERTINENT PMH: PT HOSPITALIZED IN LAST 90 DAYS (NOVEMBER 2020) GOAL: 15-20 HX: NO DOSING HX IDENTIFIED BMI: 23 WT: 59 KG SCR: 1.25 ESTCRCL ~ 41 ML/MIN T 1/2 ~ 18H TMAX: 97.7 PT REQUIRING INTUBATION TO PROTECT AIRWAY WBC: 18.3 LA: 5.3-> 1.9 CRP: 1.9 MICRO IN PROCESS MRSA NASAL SWAB PENDING PER PHYSICIAN NOTE CXR REPORTING PULMONARY EDEMA, UNABLE TO RULE OUT UNDERLYING PNA PT WAS LOADED WITH 1.5 GM X1 IN ED. WILL START A MAINTENANCE DOSE OF 1 GM Q24H. WILL FOLLOW RENAL FUNCTION, MICRO, AND THERAPY PLAN FOR NEED TO CHANGE THERAPY. THANK YOU FOR THIS DOSING CONSULT!
[2021-02-05 06:11] LABS: GASTROCCULT POSITIVE; pH GASTRIC CONTENTS 3
--- NOTE | 2021-02-05 06:15 | NUR ---
Woman calls that identifies herself as the patient's [id number]. When asked for her she stated that she did not know, but states "my might." Mitchell, identifies as patient's son, gets on the phone & cannot recall her either. States that he will come to hospital to get information if needed. Son stated that they called the ED & could not get information either. Provided with minimal information. Asked if patient had DPOA. Mitchell stated Ravin was her son/DPOA & lives in [place]. Advised son that due to number of COVID patients in the ICU there are no visitors. Specialists will see her this morning & we will be able to give update after rounds. Ray "DPOA" [phone] Mitchell son [phone]
--- NOTE | 2021-02-05 07:00 | NUR ---
PT INTUBATED AND SEDATED. PT ON CARDENE AND PROPOFOL DRIP. VSS. WILL CONTIUE TO MONITOR.
[2021-02-05 07:36] LABS: TRICYCLIC ANTIDEPRESS URINE NEGATIVE
[2021-02-05 09:11] LABS: ARTERIAL BLD GAS O2 SATURATION 99.5 % (92-100); ARTERIAL BLOOD GAS BASE EXCESS -2.7 (-2-2); ARTERIAL BLOOD GAS HCO3 19.2 meq/L (22-26); ARTERIAL BLOOD GAS PCO2 25.9 mmHg (35-45); ARTERIAL BLOOD GAS pH 7.49 (7.35-7.45)
[2021-02-05 09:14] LABS: ARTERIAL BLOOD GAS PO2 241.3 mmHg (80-100)
[2021-02-05 09:20] LABS: CALCIUM 8.7 mg/dL (8.4-10.2); CREATININE, serum 1.43 (0.52-1.25); POTASSIUM 3.8 mmol/L (3.4-5.0)
--- NOTE | 2021-02-05 10:08 | NUR ---
Patient resting on 2LPM. RT suctioned orally and inline before extubation.
[2021-02-05 12:51] LABS: ARTERIAL BLD GAS TCO2 CT 24.9; ARTERIAL BLOOD GAS BASE EXCESS -0.5 (-2-2); ARTERIAL BLOOD GAS HCO3 23.7 meq/L (22-26); ARTERIAL BLOOD GAS PCO2 37.8 mmHg (35-45); ARTERIAL BLOOD GAS PO2 75.6 mmHg (80-100); ARTERIAL BLOOD GAS pH 7.42 (7.35-7.45)
--- NOTE | 2021-02-05 15:05 | NUR ---
linen worker contacted patient's son/durable power of traffic law attorney for health care, Josue and obtained initial assessment information. Patient resides with her boyfriend, Kelton, in [place]. Patient's durable power of traffic law attorney papers are placed on chart and discussed with patient's nurse. Patient's nephew, Judith Lentz [phone] moved into patient's home on 02/04/21 to help care for patient. It is documented that patient was disheveled and had feces on her body upon arrival. Patient was also positive for illegal drugs. Worker will file an Adult Protective report for possible self neglect. Josue stated he wants to take patient to his home, however, cannot accommodate patient's boyfriend. Patient has a son, Mitchell, that resides in [place]. Josue verbalizes understanding that he will be the contact for ICU staff to communicate any updates and health status. It is notes that patient had not filled her medications since November. Patient was recently extubated and not fully alert. Case management will follow and assist with discharge planning needs.
--- NOTE | 2021-02-05 15:17 | NUR ---
roller shop utility worker filed an APS report #[id number].
--- NOTE | 2021-02-05 16:50 | NUR ---
1613-REPORT CALLED TO JACQUELINE ARZATE. ALL QUESTIONS ANSWERED. 1640- PT WHEELED UP TO ROOM 354. PT TRANSFERED FROM WHEELCHAIR TO BED. PT ORIENTED TO ROOM AND FLOOR. BED ALARM ACTIVE. PT HAS CALL LIGHT AND ROOM PHONE. RN NOTIFIED OF ARRIVAL.
--- NOTE | 2021-02-05 22:05 | NUR ---
PT CURRENTLY REFUSING ALL MEDICATIONS. PT STATES, "HONEY I HAVEN'T EATEN SINCE YESTERDAY'S BREAKFAST I DON'T WANT ANYTHING UNTIL I CAN EAT" WILL TRY AGAIN AT LATER TIME.
--- NOTE | 2021-02-06 01:56 | NUR ---
PT CONFUSED UPON ASSESSMENT. ORIENTED TO NAME, BIRTHDAY, LOCATION, NOT ORIENTED TO SITUATION. PT GUARDING WITH ABDOMEN PALPATION, STATING PAIN IN UPPER LEFT QUADRANT AND RIGHT LOWER QUADRANT. CRACKLES NOTED IN LUNG BASES BILATERALLY. PT STATED PAIN IN LEGS, "LIKE I'VE BEEN RUNNING ALL DAY" NO SWELLING OR REDNESS NOTED AT THIS TIME. PT HAD COOL EXTREMITIES TO TOUCH, CAP REFILL <3S. PT REFUSING MEDICATIONS, REQUESTING TO EAT BEFORE. CHARGE NURSE NOTIFIED. PT GIVEN SANDWICH CUT UP AND CHARGE NURSE ASSESSED ABILITY TO CONSUME. PT THEN COMPLIANT WITH MEDICATION ADMINISTRATION. REFUSED VTE PROPHYLAXIS. PT CALL LIGHT WITHIN REACH.
[2021-02-06 03:28] VITALS: BP 172/83; PULSE 85; TEMP 98.1
[2021-02-06 06:25] VITALS: BP 206/102; PULSE 85
--- NOTE | 2021-02-06 06:53 | NUR ---
pt blood pressure 200/102. attempt at recheck on other arm, unsuccessful read. charge nurse notified. pt refusing recheck of bp. will continue to monitor.
--- NOTE | 2021-02-06 07:45 | NUR ---
PT ALERT AND ORIENTED X3 THIS SHIFT. UNABLE TO RECALL SITUATION. PT REMAINED ON [facility] SOFT DIET WITH THIN LIQUIDS. PT REFUSED MEDICATIONS AT 2100 STATING "I'M NOT TAKING ANYTHING UNTIL I CAN EAT". CHARGE NURSE NOTIFIED, CHARGE NURSE PROVIDED SANDWHICH AND OBSERVED ABILITY TO EAT. PT ABLE TO EAT SANDWHICH WITH APPLESAUCE. PT MEDICATIONS ADMINISTERED AFTER EATING. PT COMPLAINS OF ABDOMINAL PAIN IN UPPER QUADRANTS. PT HAS ALVARES IN PLACE FOR ACCURATE I/O AT THIS TIME.
[2021-02-06 08:06] LABS: MEAN CORPUSCULAR HGB CONC 32 g/dl (33.0-37.0); MEAN PLATELET VOLUME 9.8 fl (7.4-10.4); RED BLOOD COUNT 3.92 M/mm3 (4.10-5.30); REDCELL DISTRIBUTION WIDTH-CV 14.4 % (11.5-14.5)
[2021-02-06 08:07] LABS: HEMATOCRIT 34.5 % (37.0-47.0); HEMOGLOBIN 11.1 g/dl (12.5-16.0); MEAN CELL VOLUME 88 fl (80.0-100.0); MEAN CORPUSCULAR HEMOGLOBIN 28 pg (27.0-31.0); PLATELET COUNT 426 K/mm3 (130-400)
[2021-02-06 08:16] LABS: CALCIUM 8.4 mg/dL (8.4-10.2); CREATININE, serum 2.05 (0.52-1.25); MAGNESIUM 2.1 mg/dL (1.6-2.3); PHOSPHOROUS 5.2 mg/dL (2.5-4.5); POTASSIUM 3.7 mmol/L (3.4-5.0)
[2021-02-06 08:26] LABS: BAND 11 % (0-10); LYMPHOCYTE 8 % (20.0-51.0); NEUTROPHILS 80 % (42.0-75.2); PLATELET ESTIMATE NORMAL (NORMAL)
[2021-02-06 08:37] VITALS: BP 197/98; PULSE 75; TEMP 97.8
[2021-02-06 08:50] LABS: TROPONIN-I 0.114 ng/mL (0.000-0.035)
--- NOTE | 2021-02-06 10:45 | NUR ---
Assessment completed, alert/oriented, vital signs stable/ continues to run Hypertensive, has been in and we have discussed plan of care, creat is up and we are going to give some slow IVF, transtitioning back to oral antihypertensives, heart RRR/ distal pulses are palpable, lungs CTA/ no resp.difficulty noted and is now on room air, dneies needs, will continue to monitor
[2021-02-06 12:04] VITALS: BP 129/56; PULSE 71; TEMP 97.9
--- NOTE | 2021-02-06 17:16 | NUR ---
TX REFUSED, WANTS TO SLEEP
[2021-02-06 17:27] VITALS: BP 174/75; PULSE 86; TEMP 97.9
[2021-02-06 19:28] VITALS: BP 170/87; PULSE 75; TEMP 98
[2021-02-07 00:04] VITALS: BP 144/74; PULSE 79; TEMP 98
--- NOTE | 2021-02-07 00:13 | NUR ---
PT REFUSING CATHETER REMOVAL. ATTEMPT OF CATHETER CARE, TOLD TO STOP.
--- NOTE | 2021-02-07 00:28 | NUR ---
PT ALERT, ORIENTED TO PERSON, PLACE, TIME, NOT SITUATION. PT HAD 1+ PULSES IN DORALIS PEDIS AND POSTERIOR TIBIAL BILATERALLY. CAP REFILL <3S. PT HAD WEAK STRUCTURAL BIOLOGIST, EQUAL BILATERALLY. PT HAD MALODOROUS MICHELE AREA, PT COMPLAINED OF NEEDING TO URINATE. REINFORCED CATHETER PURPOSE, DRAINED URINE IN TUBING. PT STATED RELIEF FELT. PT REFUSED FLUSH OF IV IN RIGHT WRIST. PT REFUSED MEDICATION STOP FOR IV MEDICATION. PHARMACY NOTIFIED ABOUT UNCERTAIN COMPATIBILITY, CONFIRMED OKAY TO Y-SITE MEDICATION. PT STATES UPPER ABDOMINAL PAIN, DENIES MEDICATION STATING "I WANT TO SLEEP." PT ABDOMEN TENDER TO TOUCH, SOFT WITH PALPATION. ACTIVE BOWEL SOUNDS IN ALL 4 QUADRANTS.
[2021-02-07 05:08] VITALS: PULSE 74; TEMP 98
--- NOTE | 2021-02-07 05:11 | NUR ---
DURING VS AT 0510, PT REFUSED BP. PT UNWILLING TO RESUME BLOOD PRESSURE STATING, "ENOUGH IS ENOUGH".
--- NOTE | 2021-02-07 06:52 | NUR ---
PT IRRITABLE THIS SHIFT. REFUSED FLUSH OF IV OF RW AT 2100. REFUSED CATHTER REMOVAL AT 2200. HAD ONE BOUT OF NAUSEA AROUND 0000, REFUSED PHENERGEN. REFUSED FLUSH OF IV OF RW AT 0600. PT IV IN LW REDRESSED AT 0600. REFUSED 0400 BLOOD PRESSURE. PT FREE FROM INJURY THIS SHIFT. ABLE TO MOVE INDEPENDENTLY IN BED, REFUSED TO GET OUT OF BED THIS SHIFT. PT FREE FROM INJURY THIS SHIFT.
--- NOTE | 2021-02-07 10:36 | NUR ---
Patient given her PO meds. She took one pill, spit it out, and then threw the others on her tray stating, "I'm not taking these. I can't f*cking swallow them. You guys don't let me sleep, just leave me alone". Patient was also informed by the hospitalist that her sevilla could be removed. Patient agreed to this, but when this RN went to remove it the patient refused and said it could be removed after her nap. Patient has requested to be left alone.
--- NOTE | 2021-02-07 10:49 | NUR ---
PT REFUSED TX, WANTS TO SLEEP
[2021-02-07 11:57] VITALS: BP 193/88; PULSE 71; TEMP 97.7
[2021-02-07 14:06] LABS: MEAN CELL VOLUME 89 fl (80.0-100.0); MEAN CORPUSCULAR HGB CONC 32 g/dl (33.0-37.0); MEAN PLATELET VOLUME 9.6 fl (7.4-10.4); RED BLOOD COUNT 3.47 M/mm3 (4.10-5.30); REDCELL DISTRIBUTION WIDTH-CV 14.6 % (11.5-14.5)
[2021-02-07 14:11] LABS: HEMATOCRIT 30.9 % (37.0-47.0); HEMOGLOBIN 9.9 g/dl (12.5-16.0); MEAN CORPUSCULAR HEMOGLOBIN 29 pg (27.0-31.0); PLATELET COUNT 324 K/mm3 (130-400)
[2021-02-07 14:19] LABS: CALCIUM 8.2 mg/dL (8.4-10.2); CREATININE, serum 1.57 (0.52-1.25); MAGNESIUM 2.2 mg/dL (1.6-2.3); PHOSPHOROUS 3.4 mg/dL (2.5-4.5); POTASSIUM 3.5 mmol/L (3.4-5.0)
[2021-02-07 14:52] LABS: BASOPHIL 1 % (0-2); LYMPHOCYTE 15 % (20.0-51.0); METAMYELOCYTE 1 % (0-0); NEUTROPHILS 74 % (42.0-75.2); PLATELET ESTIMATE NORMAL (NORMAL)
[2021-02-07 14:53] LABS: HYPOCHROMIA 2+
[2021-02-07 16:45] VITALS: PULSE 83; TEMP 97.8
[2021-02-07 16:47] VITALS: BP 226/97
--- NOTE | 2021-02-07 17:44 | NUR ---
Patient has refused food provided by the hospital today. Patient refuses the meals as she is on a mechanical soft diet per ST. Patient stated, "How about you eat this shit? I'm not eating, you guys are just going to let me go hungry". This RN explained to the patient why she was on this type of diet and the patient rolled over and stated, "Get the f*ck out of my room". The patient's visitor at the time told the patient to be nice, as the people here are trying to help her. Patient apologized when it was time for 1600 meds and took them without difficulty. Patient's visitor did bring her sonic, patient did not follow the education provided by this RN.
--- NOTE | 2021-02-07 18:54 | NUR ---
Patient c/o SOB. O2 sat is 98% on RA. Says she is having difficulty breating in through her nose. Patient was already given PRN robitussin. This RN explained that she could not have more until 0. Warm wash cloth was placed on the patient's face to assist with drainage and patient was instructed to stay sitting up to allow proper drainage.
--- NOTE | 2021-02-07 19:13 | NUR ---
PT SLEEPING, SAID TO LET HER SLEEP
[2021-02-07 20:10] VITALS: BP 257/86; PULSE 91; TEMP 98
--- NOTE | 2021-02-07 21:44 | NUR ---
ALERT AND OX4. FEELING SOA, SATTING 97%RA. PM MEDS GIVEN ALONG W CALLING HUMBERTO FOR SLEEP AIDE, MELATONIN ORDERED. PT ACCIDENTLY PULLED ON LEFT WRIST AND IV NOW LEAKING. THIS SITE REMOVED. RT WRIST, INTACT. POC DISCUSSED. NEEDS MET.
--- NOTE | 2021-02-07 21:46 | NUR ---
NOTE- PT NON COMPLIENT W MECH SOFT HAD SONIC BAG AT BEDSIDE AND ATE FOR DINNER.
[2021-02-08] VITALS (7 sets, daily range): BP systolic 115–193; BP diastolic 49–122; PULSE 58–75; TEMP 97.4–98.9
--- NOTE | 2021-02-08 00:46 | NUR ---
RN TAKES BP ON PT AND DOES NOT BELIEVE SOURCING INTERN VITALS TO BE ACCURATE. BP CURRENTLY 155/70.
--- NOTE | 2021-02-08 04:47 | NUR ---
FLOTATION TENDER REPORTED BP, PT NOT COOPERATING WHEN CUFF SQUEEZING. TOOK ANJELICA 170/90. CHARTED.
--- NOTE | 2021-02-08 05:34 | NUR ---
RESTED THROUGH THE NIGHT WI INCIDENT. AWAITING AM LABS FOR VANCO TROUGH TO HAND AM ANTIBOTICS. PT IS COOPERATIVE MOST OF THE TIME BUT ALSO REFUSES CARES AT TIMES.
[2021-02-08 07:04] LABS: BASO % 0.1 % (0.0-2.0); EOS # 0.1 (0.0-0.7); EOS % 0.5 % (0-4.0); GRAN # 7.5 (1.4-6.5); GRAN % 72.6 % (42.2-75.2); HEMOGLOBIN 10.9 g/dl (12.5-16.0); LYMPH # 1.7 (1.2-3.4); LYMPH % 16.5 % (20.0-51.0); MEAN CELL VOLUME 88 fl (80.0-100.0); MEAN CORPUSCULAR HEMOGLOBIN 28 pg (27.0-31.0); MEAN CORPUSCULAR HGB CONC 32 g/dl (33.0-37.0); PLATELET COUNT 340 K/mm3 (130-400); RED BLOOD COUNT 3.87 M/mm3 (4.10-5.30); REDCELL DISTRIBUTION WIDTH-CV 14.5 % (11.5-14.5)
--- NOTE | 2021-02-08 07:05 | NUR ---
PT SLEEPING AT THIS TIME. WAITING ON VANC TROUGH TO START 0600 VANC DOSE.
[2021-02-08 07:10] LABS: HEMATOCRIT 34.1 % (37.0-47.0)
[2021-02-08 07:24] LABS: CALCIUM 9.2 mg/dL (8.4-10.2); CREATININE, serum 1.16 (0.52-1.25); MAGNESIUM 1.8 mg/dL (1.6-2.3); PHOSPHOROUS 3.4 mg/dL (2.5-4.5); POTASSIUM 3.4 mmol/L (3.4-5.0)
--- NOTE | 2021-02-08 16:21 | NUR ---
The hospitalist notified GABY that the patient will tentatively be ready to d/c tomorrow. An IPR consult was ordered. The patient has been declining therapy. Kira, IPR Director, reports that the patient is not a candidate. PT/OT is recommending home with family assist/HH. The patient has Medicaid. Medicaid does not covery for therapy in the home. GABY notified the clinical team of this. GABY met with the patient to review d/c plan. The patient plans to return home with her life partner and nephew. GABY discussed home health services for nursing. The patient was interested in home health and was agreeable to [facility]. The patient is listed as not having a PCP. GABY contacted the patient's son, Josue, to review the above. Josue confirms that he does not think the patient has a PCP. He states that the patient was set up with a provider upon her last hospital stay, but he does not think she went to her appointment. Per EMR, the patient was set up with Dr. Doreen French at the [facility]. GABY informed Josue of this. Josue reports that he would be interested in getting the patient set up there again. He reports that his brother, Mitchell, lives here now and will be able to transport the patient to her appointments. GABY contacted [facility] and scheduled the patient an appointment with Dr. Doreen French on Monday, 02/16, at 1030. GABY to notify the apartment community assistant manager of the appointment. GABY updated Josue of the appointment and how home health will likely not be able to see the patient until that first appointment. Josue verbalized understanding and was okay with this. GABY contacted and faxed a referral to Angela at [facility]. Demetrius reports that they should be able to accept the patient and that they will reach out to Dr. French to make sure she will follow the patient.
--- NOTE | 2021-02-08 22:52 | NUR ---
ALERT OX3. PT APPEARS TO BE SLEEPY TONIGHT TOOK SOME MEDS AND SAT THE REST DOWN AND SAID MAYBE LATER. IV FLUIDS GOING. DENIES NEO, LIGHTHEADED OR DIZZY. NO PAIN. POC DISCUSSED. CALL LIGHT WI REACH. BED ALARM ON.
--- NOTE | 2021-02-09 01:36 | NUR ---
0035- REFUSED MIDNIGHT VITALS AND BLOOD SUGAR.
[2021-02-09 04:08] VITALS: BP 160/49; PULSE 72; TEMP 97.5
--- NOTE | 2021-02-09 05:26 | NUR ---
RESTED THOUGH NIGHT WITHOUT INCIDENT. NEEDS MET.
[2021-02-09] MEDS ORDERED: APRESOLINE50 MG PO ×3 (08:50→10:51)
[2021-02-09] MEDS ORDERED: CATAPRES 0.1MG0.1 MG PO ×3 (08:50→10:51)
[2021-02-09] MEDS ORDERED: LIPITOR 80MG80 MG PO ×3 (08:50→10:51)
[2021-02-09] MEDS ORDERED: IMDUR 60MG60 MG/TAB PO ×3 (08:51→10:51)
[2021-02-09] MEDS ORDERED: NORMODYNE200 MG PO ×3 (08:52→10:51)
[2021-02-09] MEDS ORDERED: ASPIRIN 81M81 MG/TA2 PO ×3 (08:52→10:51)
[2021-02-09] MEDS ORDERED: PRINIVIL10 MG PO ×3 (08:52→10:51)
[2021-02-09] MEDS ORDERED: RT ADVAIR HFA 1112 G IH ×3 (08:55→10:51)
[2021-02-09] MEDS ORDERED: IPRATROPIUM BROM3 M1 IH ×2 (08:55)
[2021-02-09] MEDS ORDERED: PROTONIX 40MG T40 MG PO ×3 (08:55→10:51)
[2021-02-09] MEDS ORDERED: PREDNISONE20 MG PO ×3 (08:56→10:51)
[2021-02-09] MEDS ORDERED: OMNICEF 300MG300 MG PO ×3 (08:57→10:51)
[2021-02-09 09:02] VITALS: BP 171/68; PULSE 72; TEMP 97.8
--- NOTE | 2021-02-09 09:17 | NUR ---
GABY notified the ammunition assembly ii laborer of the patient's appointment with Dr. French. Angela, at [facility], reports that they are able to accept the patient for services. The patient is to discharge back home with her life partner and nephew today, 02/09, with home health services for senior care from [facility]. GABY notified and faxed d/c orders to Demetrius at [facility]. GABY contacted and updated the patient's son, Josue. Josue reports that he will notify his brother and have his brother pickling solution maker the patient. No additional needs at this time.
--- NOTE | 2021-02-09 10:28 | NUR ---
PT IS DISCHARGING AT THIS TIME. TAKING IV OUT AND THEN WALKING PATIENT OUT. NO FURTHER CONCERNS.
[2021-02-09] MEDS ORDERED: PROAIR DIGIHAL90 MCG IH (10:51)
== END 2021-02-09 11:00 | disposition home health service (06) | DRG 280 ==
LOC: COL.ER 00:46 → EDBD 00:47 → ICU 03:20 → MEDICAL 16:55
PROVIDERS: Emergency Medicine; Internal Medicine Pulmonary Disease; Nurse Practitioner Family; ADMIT Internal Medicine
PROC: 0BH17EZ Insertion of Endotracheal Airway into Trachea, Via Natural or Artificial Opening (ICD-10-PCS; principal; 2021-02-05)
PROC: 5A1945Z Respiratory Ventilation, 24-96 Consecutive Hours (ICD-10-PCS; 2021-02-05)
DX: I16.1 Hypertensive emergency (principal); I21.A1 Myocardial infarction type 2; J96.01 Acute respiratory failure with hypoxia; J96.02 Acute respiratory failure with hypercapnia; J18.9 Pneumonia, unspecified organism; G93.41 Metabolic encephalopathy; J81.0 Acute pulmonary edema; I42.8 Other cardiomyopathies; E87.2 Acidosis; N17.9 Acute kidney failure, unspecified; R65.10 Systemic inflammatory response syndrome (SIRS) of non-infectious origin without acute organ dysfunction; K92.2 Gastrointestinal hemorrhage, unspecified; F19.10 Other psychoactive substance abuse, uncomplicated; Z20.822 Contact with and (suspected) exposure to COVID-19; I11.0 Hypertensive heart disease with heart failure; R73.9 Hyperglycemia, unspecified; F17.210 Nicotine dependence, cigarettes, uncomplicated; G72.9 Myopathy, unspecified; R13.10 Dysphagia, unspecified; Z86.73 Personal history of transient ischemic attack (TIA), and cerebral infarction without residual deficits; Z79.82 Long term (current) use of aspirin; Z91.14 Patient's other noncompliance with medication regimen; Z85.43 Personal history of malignant neoplasm of ovary
CPT/HCPCS: 99223-AI; 99233-AI; 99239; C9113; J0330; J0692; J1940; J1956; J2250; J2270; J2704; J3370; J7030; J7050; J7512

== ENCOUNTER 2021-03-01 19:56 | Emergency (ER) | payer MEDICAID ==
[~2021-03-01] VITALS: Ht 152.4 cm; Wt 51.4 kg
[~2021-03-01 19:56] MED LIST changes: +ASPIRIN 81M81 MG/TA2 PO; +NORMODYNE200 MG PO; +OMNICEF 300MG300 MG PO; +PROAIR DIGIHAL90 MCG IH; +PROTONIX 40MG T40 MG PO
[2021-03-01 19:58] VITALS: TEMP 96
[2021-03-01 20:28] LABS: ARTERIAL BLD GAS O2 SATURATION 95.3 % (92-100); ARTERIAL BLD GAS TCO2 CT 27.4; ARTERIAL BLOOD GAS HCO3 26.2 meq/L (22-26); ARTERIAL BLOOD GAS PCO2 39.4 mmHg (35-45); ARTERIAL BLOOD GAS PO2 72.1 mmHg (80-100); ARTERIAL BLOOD GAS pH 7.44 (7.35-7.45)
[2021-03-01 21:27] LABS: ALBUMIN 3.9 gm/dL (3.5-5.0); BILIRUBIN,TOTAL 0.7 mg/dL (0.0-1.0); CALCIUM 9.1 mg/dL (8.4-10.2); CREATININE, serum 1.03 (0.52-1.25); POTASSIUM 3.8 mmol/L (3.4-5.0); TOTAL PROTEIN 7.1 gm/dL (6.4-8.2)
[2021-03-01 21:40] LABS: TROPONIN-I 0.047 ng/mL (0.000-0.035)
[2021-03-01 22:55] LABS: BASO # 0.1 (0.0-0.2); BASO % 0.5 % (0.0-2.0); EOS # 0.1 (0.0-0.7); EOS % 0.6 % (0-4.0); GRAN # 10.9 (1.4-6.5); GRAN % 85.6 % (42.2-75.2); HEMOGLOBIN 10.4 g/dl (12.5-16.0); LYMPH # 0.8 (1.2-3.4); LYMPH % 6.6 % (20.0-51.0); MEAN CELL VOLUME 87 fl (80.0-100.0); MEAN CORPUSCULAR HEMOGLOBIN 28 pg (27.0-31.0); MEAN CORPUSCULAR HGB CONC 32 g/dl (33.0-37.0); MEAN PLATELET VOLUME 9.6 fl (7.4-10.4); MONO # 0.8 (0.1-0.6); MONO % 6.4 % (1.7-9.3); PLATELET COUNT 345 K/mm3 (130-400); RED BLOOD COUNT 3.73 M/mm3 (4.10-5.30); REDCELL DISTRIBUTION WIDTH-CV 13.8 % (11.5-14.5)
[2021-03-01 22:56] LABS: HEMATOCRIT 32.3 % (37.0-47.0)
[2021-03-02 00:40] LABS: COLLECTION METHOD CLEAN CATCH
[2021-03-02 00:52] LABS: TRICYCLIC ANTIDEPRESS URINE NEGATIVE
[2021-03-02 01:19] LABS: PH 7 (5-8); URINE APPEARANCE Hazy; URINE BACTERIA None Seen /hpf; URINE BILIRUBIN Negative (NEGATIVE); URINE BLOOD Negative (NEGATIVE); URINE COLOR Yellow; URINE GLUCOSE Negative (NEGATIVE); URINE KETONE Negative (NEGATIVE); URINE LEUKOCYTE ESTERASE 3+ (NEGATIVE); URINE NITRATE Negative (NEGATIVE); URINE PROTEIN(semi-quant) 2+ (NEGATIVE); URINE RBC 0-2 /hpf; URINE UROBILINOGEN Negative (NEGATIVE)
[2021-03-02 04:23] VITALS: BP 167/75; PULSE 79
== END 2021-03-02 04:23 | disposition home or self-care (01) ==
LOC: COL.ER 19:56
PROVIDERS: Emergency Medicine
DX: R41.82 Altered mental status, unspecified (principal); R55 Syncope and collapse; R79.89 Other specified abnormal findings of blood chemistry; R79.0 Abnormal level of blood mineral; I11.0 Hypertensive heart disease with heart failure; I50.9 Heart failure, unspecified; J44.9 Chronic obstructive pulmonary disease, unspecified; Z86.73 Personal history of transient ischemic attack (TIA), and cerebral infarction without residual deficits; Z79.899 Other long term (current) drug therapy; Z79.82 Long term (current) use of aspirin; Z79.52 Long term (current) use of systemic steroids
CPT/HCPCS: J7030

== ENCOUNTER 2021-06-29 09:25 | Inpatient (IN) | payer MEDICAID ==
[~2021-06-29] VITALS: Ht 154.9 cm; Wt 55.0 kg
[2021-06-29 09:40] LABS: ARTERIAL BLD GAS O2 SATURATION 97.8 % (92-100); ARTERIAL BLD GAS TCO2 CT 26.3; ARTERIAL BLOOD GAS HCO3 24.2 meq/L (22-26)
[2021-06-29 09:41] LABS: ARTERIAL BLOOD GAS PCO2 71.1 mmHg (35-45); ARTERIAL BLOOD GAS pH 7.15 (7.35-7.45)
[2021-06-29 09:47] LABS: BASO # 0.1 K/mm3 (0.0-0.2); BASO % 0.7 % (0.0-2.0); EOS # 0.4 K/mm3 (0.0-0.7); EOS % 2.1 % (0.0-4.0); GRAN % 74.7 % (42.2-75.2); HEMATOCRIT 44.2 % (37.0-47.0); HEMOGLOBIN 13.3 g/dl (12.5-16.0); LYMPH # 2.3 K/mm3 (1.2-3.4); LYMPH % 13.4 % (20.0-51.0); MEAN CELL VOLUME 89 fl (80.0-100.0); MEAN CORPUSCULAR HEMOGLOBIN 27 pg (27-31); MEAN CORPUSCULAR HGB CONC 30 g/dl (33.0-37.0); MEAN PLATELET VOLUME 10.2 fl (7.4-10.4); MONO # 1.5 K/mm3 (0.1-0.6); MONO % 8.5 % (1.7-9.3); PLATELET COUNT 441 K/mm3 (130-400); RED BLOOD COUNT 4.95 M/mm3 (4.10-5.30); REDCELL DISTRIBUTION WIDTH-CV 14.4 % (11.5-14.5)
[2021-06-29 10:09] LABS: ALBUMIN 3.9 gm/dL (3.4-4.8); BILIRUBIN,TOTAL 0.6 mg/dL (0.2-1.2); CREATININE, serum 1.33 mg/dL (0.57-1.11); POTASSIUM 4.2 mmol/L (3.5-4.5); TOTAL PROTEIN 8.2 gm/dL (6.2-8.1)
[2021-06-29 10:10] LABS: MUCOUS Present (NOT PRESENT); PH 7 (5-8); SQUAMOUS EPITHELIAL None Seen /hpf (0-10); URINE APPEARANCE Hazy (CLEAR/HAZY); URINE BACTERIA Rare /hpf (NONE SEEN); URINE BILIRUBIN Negative (NEGATIVE); URINE BLOOD Negative (NEGATIVE); URINE COLOR Yellow (YELLOW); URINE GLUCOSE 2+ (NEGATIVE); URINE KETONE Negative (NEGATIVE); URINE LEUKOCYTE ESTERASE Negative (NEGATIVE); URINE NITRATE Negative (NEGATIVE); URINE PROTEIN(semi-quant) 3+ (NEGATIVE); URINE UROBILINOGEN Negative (NEGATIVE)
[2021-06-29 10:11] LABS: COLLECTION METHOD CATHETER
[2021-06-29 10:16] LABS: TROPONIN-I 0.079 ng/mL (0.00-0.033)
[2021-06-29 11:48] LABS: ARTERIAL BLD GAS O2 SATURATION 97.5 % (92-100); ARTERIAL BLD GAS TCO2 CT 28.4; ARTERIAL BLOOD GAS BASE EXCESS 1.6 (-2-2); ARTERIAL BLOOD GAS PCO2 45.3 mmHg (35-45); ARTERIAL BLOOD GAS PO2 98.6 mmHg (80-100); ARTERIAL BLOOD GAS pH 7.39 (7.35-7.45)
[2021-06-29 21:30] VITALS: BP 170/69; PULSE 86; TEMP 97.2
--- NOTE | 2021-06-29 21:30 | NUR ---
Admitted to nedical floor from ER- o2 at 3L/nc with sat of 93%, Tele on, very difficult to understand-poor dentation, no teeth, veru upset about blood pressure being taken- states it hurts,, wants to go to sleep- could not review med rec- pt had no idea of her medications and said to call "chyna in the morning",, also stated that she is only taking one pill now every day? states it a blood pressure med but thats all? has Gonzalez to DD with clear yellow urine. bed alarm on to remind patient if she starts getting up
[2021-06-30 00:58] VITALS: PULSE 66
[2021-06-30 04:58] VITALS: BP 111/94; PULSE 74
--- NOTE | 2021-06-30 05:42 | NUR ---
Did not sleep much, o2 at 3L/nc with sats at 97%, VSS
[2021-06-30 07:51] VITALS: PULSE 80
[2021-06-30 08:53] VITALS: BP 146/82
--- NOTE | 2021-06-30 09:23 | NUR ---
Pt assessment complete. Pt quite anxious this am, refusing any cares. Refused labs, BP, O2, breathing treatment etc. She was agreeable to have BP taken later on. Discussed medications with patient's pharmacy, they reported patient has not filled medications since January. TESS Tee notified. Pt reporting pain to RUE from failed PICC line attempt. Pt denies any SOB. No needs at this time. Call light within reach.
[2021-06-30] MEDS ORDERED: 00186-0372-20 IH (10:41)
[2021-06-30 12:03] VITALS: BP 145/80; PULSE 88
--- NOTE | 2021-06-30 13:56 | NUR ---
Pt refusing RVP at this time.
--- NOTE | 2021-06-30 14:37 | NUR ---
GABY met with the patient to discuss discharge plan. The patient states that she is very sleepy and agitated at this time. She was open to answer some of GABY's questions at this time. The patient lives in [place] with her boyfriend, Rey. She reports independence with ADLs and does not have any DME. The patient's PCP is Dr. Doreen French at the [facility] and she receives her medications from [facility]. The patient's DPOA-HC is in EMR and it designates her son, Josue Arteaga (ph#[phone]). Josue lives in [place]. The patient has Medicaid. She is [id number]. SW asked the patient if she has Medicare. The patient reports that she does not know. SW consulted Financial Counseling. The patient states that she plans on returning home with her boyfriend upon discharge and then she would like to go stay with her son, Josue, in [place]. The patient would like for SW to contact Ed, but she cannot recall his phone number. GABY contacted the patient's son, Josue, and reviewed the above with him. Josue reports that the patient is fine to come and stay with him. He reports that he will try and get in touch with Ed. *Discharge plan: home with boyfriend*
[2021-06-30] MEDS ORDERED: OMNICEF 300MG300 MG PO (16:28)
[2021-06-30] MEDS ORDERED: MONODOX100 PO (16:28)
[2021-06-30] MEDS ORDERED: LASIX 40MG TABL40 MG PO (16:32)
[2021-06-30] MEDS ORDERED: LIPITOR 80MG80 MG PO (16:32)
[2021-06-30] MEDS ORDERED: ASPIRIN 81M81 MG/TA2 PO (16:32)
[2021-06-30] MEDS ORDERED: ZESTRIL 10MG10 MG PO (16:33)
[2021-06-30] MEDS ORDERED: TRANDATE 200MG200 MG PO (16:33)
[2021-06-30] MEDS ORDERED: PROAIR HFA0.09 MG/AC IH (16:33)
--- NOTE | 2021-06-30 16:33 | NUR ---
Pt's significant other here at bedside. Pt took off heart monitor and is attempting to get dressed. She is very anxious and requesting to leave. Nay PULIDO notified, her and Dr. He down to speak with patient. Pt signed AMA paperwork, bilateral IV's dc'd. Tele discontinued. Pt wheeled out of facility by staff member at this time.
[2021-06-30] MEDS ORDERED: PREDNISONE20 MG PO (16:34)
== END 2021-06-30 16:39 | disposition left against medical advice (07) | DRG 291 ==
LOC: COL.ER 09:25 → MEDICAL 17:18
PROVIDERS: Emergency Medicine; ADMIT Internal Medicine
PROC: 05HY33Z Insertion of Infusion Device into Upper Vein, Percutaneous Approach (ICD-10-PCS; principal; 2021-06-29)
DX: I11.0 Hypertensive heart disease with heart failure (principal); I50.33 Acute on chronic diastolic (congestive) heart failure; J96.21 Acute and chronic respiratory failure with hypoxia; J44.1 Chronic obstructive pulmonary disease with (acute) exacerbation; I24.8 Other forms of acute ischemic heart disease; I42.8 Other cardiomyopathies; F17.210 Nicotine dependence, cigarettes, uncomplicated; I25.10 Atherosclerotic heart disease of native coronary artery without angina pectoris; F15.129 Other stimulant abuse with intoxication, unspecified; Z86.73 Personal history of transient ischemic attack (TIA), and cerebral infarction without residual deficits; Z85.43 Personal history of malignant neoplasm of ovary; Z79.82 Long term (current) use of aspirin; Z20.822 Contact with and (suspected) exposure to COVID-19
CPT/HCPCS: 99223-AI; 99232-AI; 99239; A4314; C1751; C1892; J0696; J1644; J1940; J2250; J2405; J2920; J2930; J7050

== ENCOUNTER 2021-07-07 00:34 | Inpatient (IN) | payer MEDICAID ==
[~2021-07-07] VITALS: Ht 2.5 cm; Wt 54.7 kg
[2021-07-07] VITALS (402 sets, daily range): BP systolic 115–203; BP diastolic 59–109; PULSE 59–80; TEMP 97.8–98.7; O2SAT 88–100
[~2021-07-07 00:34] MED LIST changes: +00186-0372-20 IH; +LASIX 40MG TABL40 MG PO; +MONODOX100 PO; +ZESTRIL 10MG10 MG PO
[2021-07-07 00:55] LABS: HEMATOCRIT 41.5 % (37.0-47.0); HEMOGLOBIN 12.3 g/dl (12.5-16.0); MEAN CELL VOLUME 91 fl (80.0-100.0); MEAN CORPUSCULAR HEMOGLOBIN 27 pg (27-31); MEAN CORPUSCULAR HGB CONC 30 g/dl (33.0-37.0); MEAN PLATELET VOLUME 9.9 fl (7.4-10.4); PLATELET COUNT 525 K/mm3 (130-400); RED BLOOD COUNT 4.54 M/mm3 (4.10-5.30); REDCELL DISTRIBUTION WIDTH-CV 14.5 % (11.5-14.5)
[2021-07-07 01:07] LABS: COLLECTION METHOD CATHETER
[2021-07-07 01:15] LABS: ALBUMIN 3.5 gm/dL (3.4-4.8); CALCIUM 9.7 mg/dL (8.4-10.2); CREATININE, serum 1.02 mg/dL (0.57-1.11); POTASSIUM 4.5 mmol/L (3.5-4.5); TOTAL PROTEIN 8.1 gm/dL (6.2-8.1)
[2021-07-07 01:16] LABS: PH 8 (5-8); SQUAMOUS EPITHELIAL None Seen /hpf (0-10); URINE APPEARANCE Clear (CLEAR/HAZY); URINE BACTERIA None Seen /hpf (NONE SEEN); URINE BILIRUBIN Negative (NEGATIVE); URINE BLOOD Negative (NEGATIVE); URINE COLOR Yellow (YELLOW); URINE GLUCOSE 1+ (NEGATIVE); URINE KETONE Negative (NEGATIVE); URINE LEUKOCYTE ESTERASE Negative (NEGATIVE); URINE NITRATE Negative (NEGATIVE); URINE PROTEIN(semi-quant) 3+ (NEGATIVE); URINE UROBILINOGEN Negative (NEGATIVE)
[2021-07-07 01:28] LABS: BAND 2 % (0-10); LYMPHOCYTE 14 % (20.0-51.0); NEUTROPHILS 76 % (42.0-75.2); OVALOCYTES 1+; PLATELET ESTIMATE INCREASED (NORMAL)
[2021-07-07 01:29] LABS: HYPOCHROMIA 1+
[2021-07-07 01:41] LABS: TROPONIN-I 0.078 ng/mL (0.00-0.033)
[2021-07-07 01:48] LABS: ARTERIAL BLD GAS O2 SATURATION 99.6 % (92-100); ARTERIAL BLD GAS TCO2 CT 21.8; ARTERIAL BLOOD GAS HCO3 20.7 meq/L (22-26); ARTERIAL BLOOD GAS PCO2 36.6 mmHg (35-45); ARTERIAL BLOOD GAS pH 7.37 (7.35-7.45)
[2021-07-07 01:48] LABS: ARTERIAL BLD GAS O2 SATURATION 91.6 % (92-100); ARTERIAL BLD GAS TCO2 CT 23.5; ARTERIAL BLOOD GAS PCO2 48.6 mmHg (35-45); ARTERIAL BLOOD GAS PO2 66.3 mmHg (80-100); ARTERIAL BLOOD GAS pH 7.27 (7.35-7.45)
[2021-07-07 01:49] LABS: ARTERIAL BLOOD GAS PO2 360.3 mmHg (80-100)
[2021-07-07 01:51] LABS: INR 1.1 (0.8-3.0); PROTHROMBIN TIME 12.1 SECONDS (9.7-12.8)
[2021-07-07 01:54] LABS: PARTIAL THROMBOPLASTIN TIME 28.1 SECONDS (26.0-37.0)
--- NOTE | 2021-07-07 03:30 | NUR ---
PT ARRIVED FROM ED VIA STRETCHER. MOVED TO ICU BED AND MONITORING. NITROGLYCERINE DRIP CURRENTLY INFUSING AT 5MCG/MIN, RATE OF 1.5ML/HR. PRECEDEX CURRENTLY INFUSING AT 0.2MCG/KG/HR, RATE OF 2.7ML/HR. PT DROWSY, BUT RESPONSIVE. ABLE TO FOLLOW COMMANDS BY SQUEEZING HANDS, OPENING EYES. TWO PIV'S IN BILAT FOREARMS, FLUSH WELL. NOTED BRUISING TO ENTIRITY OF RUE, OTHER SKIN LOOKS INTACT. CURRENTLY ON BIPAP AND TOLERATING WELL. BED ALARM SET, WILL CONTINUE TO MONITOR.
[2021-07-07 05:09] LABS: TRICYCLIC ANTIDEPRESS URINE NEGATIVE
--- NOTE | 2021-07-07 05:45 | NUR ---
PT MORE ALERT NOW, SPEAKING WITH SOME SLURRED SPEECH/APHASIA. ABLE TO UNDERSTAND SOME OF SPEECH, INLCUDING PT STATING HER BIRTHDAY IS SOON, ON THE . ASKING FOR FOOD, HOWEVER PT NOT DRINKING WATER WELL PER BEDSIDE SWALLOW, WILL WAIT FOR SPEECH EVAL TO GIVE FOOD, PER TESS INMAN. INCREASING NITRO DRIP DUE TO INCREASED BP WITH INCREASED ALERTNESS/MOVING IN BED. BIPAP NO LONGER IN PLACE, PT WITH NO RESPIRATORY DISTRESS. PLACE ON 2L NC, O2 SATURATION 97%. WILL CONTINUE TO MONITOR.
[2021-07-07 08:36] LABS: HEMOGLOBIN 11.4 g/dl (12.5-16.0); MEAN CORPUSCULAR HEMOGLOBIN 27 pg (27-31); MEAN CORPUSCULAR HGB CONC 32 g/dl (33.0-37.0); MEAN PLATELET VOLUME 10.1 fl (7.4-10.4); REDCELL DISTRIBUTION WIDTH-CV 14.3 % (11.5-14.5)
[2021-07-07 08:38] LABS: HEMATOCRIT 35.3 % (37.0-47.0); MEAN CELL VOLUME 84 fl (80.0-100.0); PLATELET COUNT 404 K/mm3 (130-400)
[2021-07-07 08:56] LABS: C-REACTIVE PROTEIN 11.44 mg/dL (0.00-0.50)
[2021-07-07 09:35] LABS: BAND 2 % (0-10); NEUTROPHILS 94 % (42.0-75.2)
[2021-07-07 09:36] LABS: PLATELET ESTIMATE INCREASED (NORMAL)
[2021-07-07 09:37] LABS: ANISOCYTOSIS 1+; MICROCYTOSIS 1+; POLYCHROMASIA 1+
--- NOTE | 2021-07-07 13:50 | NUR ---
Notified JOAQUIN Liu for Dr. Ospina that cardene drip was never initiated. BP ranging 115-140's without initiation of drip. Patient able to take PO BP meds which Dr. Jensen ordered for patient.
--- NOTE | 2021-07-07 14:03 | NUR ---
Dr. Jensen updated on patient status; Off precedex and Nitro drip. BP 130-140's systolic. Dr. Jensen to put in transfer orders for medical floor.
--- NOTE | 2021-07-07 15:02 | NUR ---
electrical worker met with patient and was unable to understand patient's verbaliztions. Worker filed an APS report #[id number]. Patient has previous hospitalizations and with this stay is positive for methamphetamines and amphtetamines. Worker contacted patient's son, Josue Arteaga #[phone] who resides in [place]. Social workers were in contact with patient's son during previous hospitalization and Josue confirms that it is his plan to come to [place] and take his mother with him to [place]. Son states he has covid now and will need to finish his quarantine before he can leave [place]. Josue states that he hopes to be in [place] in less than a week, and that if patient is discharged prior to his arrival, patient will discharge home with Rey. Worker collaborated with patient's nurse that Josue is durable power of erisa attorney and that we have a copy on the medical record. Son states that patient was in alcohol rehab about 40 years ago. Worker provided son with ICU phone number. Son verbalized appreciation of staff's communication with him.
--- NOTE | 2021-07-07 18:00 | NUR ---
This nurse explained to patient that she would be going upstairs as she no longer required ICU care. Patient became very defensive and stated that she "did not want to go up there with those bitches". This nurse explained politely that that was the only option for transitional care as she no longer needs to be in the ICU. Patient stated "shut up and get out of my face". Patient eventually allowed FURNITURE AND BEDDING INSPECTOR and this nurse to bring her upstairs via wheelchair. Receiving RN at bedside awaiting patient's arrival.
--- NOTE | 2021-07-07 18:26 | NUR ---
Family notified about transfer up to medical floor. All questions addressed at this time.
--- NOTE | 2021-07-07 21:00 | NUR ---
Initial shift assessment done- alert/partially oriented, follows commands- hard to understand speech- no teeth, 02 at 1L/nc, Tele on SR, Gonzalez with clear yellow urine. Cooperative tonight- taking her meds, requesting snacks- states shes hungry
[2021-07-08 00:39] VITALS: BP 152/54; PULSE 67; TEMP 97.3
[2021-07-08 04:56] VITALS: BP 144/66; PULSE 71; TEMP 97.7
--- NOTE | 2021-07-08 05:13 | NUR ---
Fairly quiet night- did not like to be bothered during the night,, states "your not my friend anymore" , VSS, o2 at 1L/nc, takes it off frequently, sats stable in mid 90,s,
[2021-07-08 07:55] VITALS: BP 208/81; PULSE 84; TEMP 98.3
--- NOTE | 2021-07-08 08:48 | NUR ---
Pt. willingly took her scheduled PO medications and her heparin shot. Pt. refused all IV medications and reports her IVs burn when medication is injected through her IV. The pt. refused to let this RN flush the IVs. The pt. reports she will willingly take her IV medications in pill form. Plan for this RN to let provider know during rounds to see if the provider will switch scheduled IV meds to PO. Pt. requesting more food for breakfast. This RN called to get more food for the patient.
--- NOTE | 2021-07-08 10:19 | NUR ---
Initial visit; Patient thanked Performance Test Consultant for looking in on her and offering God's blessings and for keeping her in Performance Test Consultant's prayers.
[2021-07-08 11:58] VITALS: PULSE 76; TEMP 98.3
--- NOTE | 2021-07-08 12:23 | NUR ---
This AM Dr. Amato encouraged pt. to take IV medications to help her get better. The pt. was willing to try to receive IV medications. This RN administered half of the azythromyicin and the pt. yelled out and said "I will rip this IV out if you don't stop the IV!" This RN detatched the IV from the patient's arm. The pt. reports she would not like to receive any more IV medications. TESS Bond made aware. TESS Bond also made aware pt. refused to get labs today. Plan for pt. to receive PO medications today.
[2021-07-08 16:00] VITALS: BP 178/82; PULSE 79; TEMP 97.9
--- NOTE | 2021-07-08 16:30 | NUR ---
Report given to nurse Perla. RN Perla to assume care, all questions answered.
--- NOTE | 2021-07-08 17:09 | NUR ---
Patient was yelling out at nursing staff and was being uncooperative and refusing VS. Nursing staff was bale to talk with the patient and the patient agreed to getting VS done. A&O with intermittent confusion. Has been setting off the bed alarm and not calling nursing staff for assistance to the bathroom. Gonzalez intact. IV CDI, patient refusing any medication in her IV's. Doctor aware. No further needs expressed. Call light within reach. Bed alarm on
--- NOTE | 2021-07-08 18:14 | NUR ---
Patient leaving AMA, nurse and friend in the room talking with patient to stay in the hospital and the patient is refusing. Dr. Padilla, Elaine, ENVIRONMENTAL PROGRAMS MANAGER and housekeeping lead HUEY Park aware. IVs removed. Gonzalez removed, 10ml water of of balloon, tip intact. Telemetry removed. Patient has belongings with her. Nurse informed the patient the risk of leaving AMA and the patient verbalized an understanding and still wants to leave
--- NOTE | 2021-07-08 18:28 | NUR ---
Patient taken by wheelchair to the ED entrance by nursing staff.
== END 2021-07-08 18:30 | disposition left against medical advice (07) | DRG 871 ==
LOC: COL.ER 00:34 → ICU 01:31 → MEDICAL 20:05
PROVIDERS: Emergency Medicine; Internal Medicine Pulmonary Disease; Student in an Organized Health Care Education/Training Program; ADMIT Internal Medicine
PROC: 5A09457 Assistance with Respiratory Ventilation, 24-96 Consecutive Hours, Continuous Positive Airway Pressure (ICD-10-PCS; principal; 2021-07-07)
DX: A41.9 Sepsis, unspecified organism (principal); J96.21 Acute and chronic respiratory failure with hypoxia; I50.33 Acute on chronic diastolic (congestive) heart failure; I21.4 Non-ST elevation (NSTEMI) myocardial infarction; I16.1 Hypertensive emergency; J44.1 Chronic obstructive pulmonary disease with (acute) exacerbation; I42.8 Other cardiomyopathies; G93.40 Encephalopathy, unspecified; I42.0 Dilated cardiomyopathy; I11.0 Hypertensive heart disease with heart failure; I25.10 Atherosclerotic heart disease of native coronary artery without angina pectoris; F17.210 Nicotine dependence, cigarettes, uncomplicated; F15.10 Other stimulant abuse, uncomplicated; Z20.822 Contact with and (suspected) exposure to COVID-19; Z86.73 Personal history of transient ischemic attack (TIA), and cerebral infarction without residual deficits; Z79.82 Long term (current) use of aspirin; Z79.52 Long term (current) use of systemic steroids
CPT/HCPCS: 99233-AI; 99239; J0360; J0456; J0696; J1644; J1940; J1956; J2250; J2920; J2930; J7050

== ENCOUNTER 2021-08-07 08:43 | Inpatient (IN) | payer MEDICAID ==
[~2021-08-07] VITALS: Wt 68.2 kg
[2021-08-07 09:32] LABS: PROTHROMBIN TIME 11.2 SECONDS (9.7-12.8)
[2021-08-07 09:34] LABS: PARTIAL THROMBOPLASTIN TIME 27.3 SECONDS (26.0-37.0)
[2021-08-07 09:35] LABS: BASO # 0.1 K/mm3 (0.0-0.2); BASO % 0.6 % (0.0-2.0); EOS # 0.3 K/mm3 (0.0-0.7); EOS % 2.3 % (0.0-4.0); GRAN # 11.4 K/mm3 (1.4-6.5); GRAN % 76.7 % (42.2-75.2); HEMATOCRIT 38.8 % (37.0-47.0); HEMOGLOBIN 11.7 g/dl (12.5-16.0); LYMPH # 1.7 K/mm3 (1.2-3.4); LYMPH % 11.2 % (20.0-51.0); MEAN CELL VOLUME 87 fl (80.0-100.0); MEAN CORPUSCULAR HEMOGLOBIN 26 pg (27-31); MEAN CORPUSCULAR HGB CONC 30 g/dl (33.0-37.0); MEAN PLATELET VOLUME 9.4 fl (7.4-10.4); MONO # 1.3 K/mm3 (0.1-0.6); MONO % 8.5 % (1.7-9.3); PLATELET COUNT 511 K/mm3 (130-400); RED BLOOD COUNT 4.46 M/mm3 (4.10-5.30); REDCELL DISTRIBUTION WIDTH-CV 14.6 % (11.5-14.5)
[2021-08-07 09:41] LABS: ALBUMIN 3.5 gm/dL (3.4-4.8); BILIRUBIN,TOTAL 0.5 mg/dL (0.2-1.2); CALCIUM 9.3 mg/dL (8.4-10.2); CREATININE, serum 1.14 mg/dL (0.57-1.11); POTASSIUM 4.8 mmol/L (3.5-4.5); TOTAL PROTEIN 7.6 gm/dL (6.2-8.1)
[2021-08-07 09:49] LABS: TROPONIN-I 0.066 ng/mL (0.00-0.033)
[2021-08-07 10:25] LABS: ARTERIAL BLD GAS O2 SATURATION 97.4 % (92-100); ARTERIAL BLD GAS TCO2 CT 23.1; ARTERIAL BLOOD GAS BASE EXCESS -3.6 (-2-2); ARTERIAL BLOOD GAS HCO3 21.8 meq/L (22-26); ARTERIAL BLOOD GAS PO2 93.5 mmHg (80-100); ARTERIAL BLOOD GAS pH 7.34 (7.35-7.45)
--- NOTE | 2021-08-07 13:45 | NUR ---
Patient to room 356 by bed from the ED. A&O, but hard to understand. VSS on oxymask. IV CDI. Request for food and water, nursing staff will place an order. Bipap at the bedside. Nurse oriented the patient to location, room and call light. No further needs expressed. Call light within reach. Bed alarm on
[2021-08-07 16:04] VITALS: BP 172/101; PULSE 75; TEMP 97.7
[2021-08-07 16:12] LABS: TRICYCLIC ANTIDEPRESS URINE NEGATIVE
--- NOTE | 2021-08-07 18:01 | NUR ---
Patient resting in bed, boyfriend has been at the bedside. Patient A&O, hard to understand verbally. VSS 7L oxymask. IV CDI. Refusing needle sticks. No further needs expressed. Call light within reach. Bed alarm on
[2021-08-07 20:30] VITALS: BP 153/57; PULSE 66; TEMP 98.6
--- NOTE | 2021-08-07 20:30 | NUR ---
Initial shift assessment done- has been sleeping soundly- awakened for vitals and meds- o2 was off, o2 sats 87% on RA, put back on the oxymask at 7L, up to 98%. denies pain, trying to eat some supper but has no teeth- will give some pudding and applesauce, Tele put on patient as ordered, VSS no requests,
[2021-08-07 23:53] VITALS: BP 106/40; PULSE 63; TEMP 97.6
--- NOTE | 2021-08-08 01:15 | NUR ---
Was called by Tele about prolonged QT interval-- did call Doreen and order for EKG-- that was done,, called respiratory to see why we could not see the results on computer- unable to fugure that out,, Did have a hard copy , Doreen notified of QT/QTC 586/587 , now Doreen is here writing orders
[2021-08-08 02:19] LABS: MEAN CELL VOLUME 88 fl (80.0-100.0); MEAN CORPUSCULAR HGB CONC 31 g/dl (33.0-37.0); MEAN PLATELET VOLUME 9.7 fl (7.4-10.4); RED BLOOD COUNT 3.69 M/mm3 (4.10-5.30); REDCELL DISTRIBUTION WIDTH-CV 14.7 % (11.5-14.5)
[2021-08-08 02:21] LABS: INR 1.1 (0.8-3.0); PROTHROMBIN TIME 12.7 SECONDS (9.7-12.8)
[2021-08-08 02:24] LABS: HEMATOCRIT 32.5 % (37.0-47.0); HEMOGLOBIN 9.9 g/dl (12.5-16.0); MEAN CORPUSCULAR HEMOGLOBIN 27 pg (27-31)
[2021-08-08 02:25] LABS: PLATELET COUNT 370 K/mm3 (130-400)
[2021-08-08 02:35] LABS: BILIRUBIN,TOTAL 0.8 mg/dL (0.2-1.2); C-REACTIVE PROTEIN 2.78 mg/dL (0.00-0.50); CALCIUM 8.8 mg/dL (8.4-10.2); CREATININE, serum 2.27 mg/dL (0.57-1.11); POTASSIUM 3.8 mmol/L (3.5-4.5); TOTAL PROTEIN 6.5 gm/dL (6.2-8.1)
[2021-08-08 02:47] LABS: BAND 1 % (0-10); BASOPHIL 2 % (0-2); HYPOCHROMIA 3+; LYMPHOCYTE 6 % (20.0-51.0); NEUTROPHILS 90 % (42.0-75.2); PLATELET ESTIMATE NORMAL (NORMAL)
[2021-08-08 02:48] LABS: POIKILOCYTOSIS 1+
[2021-08-08 02:56] LABS: TSH w REFLEX 0.749 uIU/mL (0.350-4.940)
[2021-08-08 03:00] LABS: TROPONIN-I 0.093 ng/mL (0.00-0.033)
[2021-08-08 04:05] VITALS: BP 143/77; PULSE 61; TEMP 98.8
--- NOTE | 2021-08-08 05:09 | NUR ---
Has been resting well for the past few hours- does not like to be disturbed- refused her AM ABGs, Doreen was notified of her lab that were drawn early this morning- including the troponin. O2 sats 95% on 3 L/nc
[2021-08-08 08:39] VITALS: BP 155/59; PULSE 74; TEMP 98
--- NOTE | 2021-08-08 09:38 | NUR ---
Pt slightly anxious this morning. Pulled out her RFA IV saying it was bothering her. Attempted to flush IV to LW pt states this hurts as well and refuses further medications. Unable to administer Abx, diuretic and steroids. Pt currently on RA, sats >95%. Pt states she wants to be left alone so she can sleep.
[2021-08-08] MEDS ORDERED: MEDROL 4MG DOSPA4 MG PO (10:27)
[2021-08-08] MEDS ORDERED: DOXYCYCLINE 10100 MG PO (10:27)
[2021-08-08] MEDS ORDERED: PROAIR HFA0.09 MG/AC IH (10:31)
--- NOTE | 2021-08-08 12:39 | NUR ---
Discharge paperwork and instructions reviewed with patient. Pt instructed to take prescriptions to pharmacy of choice as [facility] is closed today. IV to LW dc'd catheter tip intact. Pt wheeled out to family members vehicle at this time.
== END 2021-08-08 12:40 | disposition left against medical advice (07) | DRG 871 ==
LOC: COL.ER 08:43 → MEDICAL 11:05
PROVIDERS: Emergency Medicine; ADMIT Internal Medicine
DX: A41.9 Sepsis, unspecified organism (principal); J96.21 Acute and chronic respiratory failure with hypoxia; I50.33 Acute on chronic diastolic (congestive) heart failure; I21.A1 Myocardial infarction type 2; J44.1 Chronic obstructive pulmonary disease with (acute) exacerbation; I42.8 Other cardiomyopathies; G93.40 Encephalopathy, unspecified; I16.1 Hypertensive emergency; I11.0 Hypertensive heart disease with heart failure; F17.210 Nicotine dependence, cigarettes, uncomplicated; I25.10 Atherosclerotic heart disease of native coronary artery without angina pectoris; F15.10 Other stimulant abuse, uncomplicated; Z20.822 Contact with and (suspected) exposure to COVID-19; Z86.73 Personal history of transient ischemic attack (TIA), and cerebral infarction without residual deficits; Z91.14 Patient's other noncompliance with medication regimen; Z79.82 Long term (current) use of aspirin; Z79.52 Long term (current) use of systemic steroids
CPT/HCPCS: 99223-AI; 99239; J0456; J0692; J1940; J2250; J2920; J3370; J7050

== ENCOUNTER 2021-08-23 04:50 | Inpatient (IN) | payer MEDICAID ==
[~2021-08-23] VITALS: Ht 154.9 cm; Wt 52.8 kg
[2021-08-23] VITALS (36 sets, daily range): BP systolic 104–226; BP diastolic 60–125; PULSE 63–87; TEMP 97.1–98.6; O2SAT 93–100
[2021-08-23 05:07] LABS: HEMATOCRIT 40.5 % (37.0-47.0); HEMOGLOBIN 12.1 g/dl (12.5-16.0); MEAN CELL VOLUME 90 fl (80.0-100.0); MEAN CORPUSCULAR HEMOGLOBIN 27 pg (27-31); MEAN CORPUSCULAR HGB CONC 30 g/dl (33.0-37.0); MEAN PLATELET VOLUME 9.9 fl (7.4-10.4); PLATELET COUNT 373 K/mm3 (130-400); RED BLOOD COUNT 4.49 M/mm3 (4.10-5.30); REDCELL DISTRIBUTION WIDTH-CV 14.7 % (11.5-14.5)
[2021-08-23 05:09] LABS: ARTERIAL BLD GAS O2 SATURATION 94.4 % (92-100); ARTERIAL BLD GAS TCO2 CT 21.4; ARTERIAL BLOOD GAS BASE EXCESS -7.3 (-2-2); ARTERIAL BLOOD GAS PO2 75.9 mmHg (80-100); ARTERIAL BLOOD GAS pH 7.25 (7.35-7.45)
[2021-08-23 05:22] LABS: ALBUMIN 3.8 gm/dL (3.4-4.8); BILIRUBIN,TOTAL 0.5 mg/dL (0.2-1.2); C-REACTIVE PROTEIN 0.77 mg/dL (0.00-0.50); CALCIUM 9.8 mg/dL (8.4-10.2); CREATININE, serum 1.55 mg/dL (0.57-1.11); MAGNESIUM 2.6 mg/dL (1.6-2.6); POTASSIUM 4.1 mmol/L (3.5-4.5)
[2021-08-23 05:40] LABS: EOSINOPHIL 1 % (0-4); LYMPHOCYTE 3 % (20.0-51.0); NEUTROPHILS 95 % (42.0-75.2); PLATELET ESTIMATE NORMAL (NORMAL)
[2021-08-23 05:46] LABS: TROPONIN-I 0.107 ng/mL (0.00-0.033)
[2021-08-23 06:22] LABS: COLLECTION METHOD IN
[2021-08-23 06:44] LABS: TRICYCLIC ANTIDEPRESS URINE NEGATIVE
[2021-08-23 06:50] LABS: MUCOUS Present (NOT PRESENT); PH 7 (5-8); SQUAMOUS EPITHELIAL 0-2 /hpf (0-10); URINE APPEARANCE Hazy (CLEAR/HAZY); URINE BACTERIA Rare /hpf (NONE SEEN); URINE BILIRUBIN Negative (NEGATIVE); URINE BLOOD 1+ (NEGATIVE); URINE COLOR Yellow (YELLOW); URINE GLUCOSE 3+ (NEGATIVE); URINE KETONE Negative (NEGATIVE); URINE LEUKOCYTE ESTERASE Negative (NEGATIVE); URINE NITRATE Negative (NEGATIVE); URINE PROTEIN(semi-quant) 2+ (NEGATIVE); URINE UROBILINOGEN Negative (NEGATIVE)
--- NOTE | 2021-08-23 09:03 | NUR ---
Pt. brought to room from ED. Dr. Shane at bedside for pulm consult. BP noted to be 226/100 then 197/99. Per Dr. Shane, transfer pt. to ICU for pulmonary edema.
--- NOTE | 2021-08-23 09:11 | NUR ---
Spoke to Macrina in [facility]. Report given & patient will go to ICU 5
--- NOTE | 2021-08-23 09:40 | NUR ---
Arrived to the unit from the medical floor. Patient alert and responsive. Speech is slurred and difficult to understand, however this is per baseline. Refusing to put on BIPAP at this time. Will initiate nitro drip for hypertension.
--- NOTE | 2021-08-23 09:49 | NUR ---
RT WAS CALLED BEDSIDE TO TRANSPORT PATIENT TO THE ICU. PATIENT REFUSED BIPAP ONCE WE GOT INTO THE UNIT, PATIENT IS AGITATED AT THIS TIME, WAS NOT AGITATED ON BIPAP UNTIL NOW.
--- NOTE | 2021-08-23 11:00 | NUR ---
Notifed Dr. Shane that patient is refusing to wear BIPAP. Will attempt again to place bipap and will obtain ABG if continues to refuse.
--- NOTE | 2021-08-23 13:08 | NUR ---
PATIENT IS STILL REFUSING BIPAP. SHE DID ATTEMPT BUT DID NOT WANT TO PROCEED WITH WEARING IT. ABG WAS ALSO REFUSED, PATIENT WAS VERY AGITATED AND SCREAMING. RT DID NOT WANT TO PROCEED WITH ABG AT THIS TIME.
--- NOTE | 2021-08-23 13:30 | NUR ---
Still refusing to place BIPAP. Discussed the risks of not wearing the BIPAP to include . This nurse asked patient if she understood the possible consequences and patient stated "yes".
--- NOTE | 2021-08-23 14:55 | NUR ---
Attempted to talk with patient twice today. The first time she told me she just wanted to sleep and refused to talk with me. The second time she conversed for a little while and was able to tell me that she has a DPOA completed that names one of her sons. She started falling asleep after that and I told her I would come back another time to discuss her goals.
--- NOTE | 2021-08-23 16:15 | NUR ---
Security Alarm Installer and student attempted to meet with patient, however she would not wake up. GABY contacted patient's DPOA-HC, Josueyina Arteaga (ph#[phone]) to discuss discharge planning. Patient lives in [place] with her boyfriend, Rey. Patient has been set up with a PCP previously, however Josue advised she has not followed through with appointments. Patient has DPOA-HC in EMR which designates Josue. Patient was positive for methamphetamines. Josue advised he plans to come to [place] to get patient and move her out to [place] after this hospital stay. GABY collaborated with Hospitalist who advised he has put in a palliative consult for patient. Discharge Plan: Unknown at this time
--- NOTE | 2021-08-23 19:00 | NUR ---
Received report from HUEY Mar.
--- NOTE | 2021-08-23 19:10 | NUR ---
PT REPORT GIVEN TO HUEY SANCHES
--- NOTE | 2021-08-23 20:00 | NUR ---
Patient resting quietly in bed. Patient laying on side; she arouses easily to verbal stimuli and follows verbal commands, however, she refuses to answer orientation questions when asked. Patient states, "leave me alone," repeatedly and rolls away from staff when attempting to speak with patient. Patient's speech is slurred and somewhat garbled; per report received from HUEY Mar, this is patient's baseline. She refuses oral evening medications.
[2021-08-24] VITALS (572 sets, daily range): BP systolic 126–184; BP diastolic 57–99; PULSE 65–88; TEMP 97.3–98.8; O2SAT 75–100
[2021-08-24 06:42] LABS: MEAN CELL VOLUME 86 fl (80.0-100.0); MEAN CORPUSCULAR HGB CONC 31 g/dl (33.0-37.0); MEAN PLATELET VOLUME 9.9 fl (7.4-10.4); PLATELET COUNT 357 K/mm3 (130-400); RED BLOOD COUNT 3.75 M/mm3 (4.10-5.30); REDCELL DISTRIBUTION WIDTH-CV 14.8 % (11.5-14.5)
[2021-08-24 06:52] LABS: HEMATOCRIT 32.2 % (37.0-47.0); MEAN CORPUSCULAR HEMOGLOBIN 26 pg (27-31)
[2021-08-24 06:55] LABS: HEMOGLOBIN 9.9 g/dl (12.5-16.0)
[2021-08-24 06:59] LABS: ALBUMIN 3.3 gm/dL (3.4-4.8); CALCIUM 9.1 mg/dL (8.4-10.2); CREATININE, serum 2.5 mg/dL (0.57-1.11); POTASSIUM 3.3 mmol/L (3.5-4.5)
[2021-08-24 07:18] LABS: BAND 6 % (0-10); LYMPHOCYTE 4 % (20.0-51.0); NEUTROPHILS 88 % (42.0-75.2)
[2021-08-24 07:19] LABS: PLATELET ESTIMATE NORMAL (NORMAL)
--- NOTE | 2021-08-24 08:03 | NUR ---
BEDSIDE REPORT RECEIVED FROM HUEY SANCHES. REPORTED THAT PT WAS ON ROOM AIR THROUGHT OUT THE NIGHT AND REFUSED TO WEAR BIPAP. FC TO DEPENDENT DRAINAGE. PT HAS SLURRED SPEECH AT BASELINE. PICC TO RIGHT UPPER ARM WITH NITRO GTT INFUSING; SEE GTT FLOW SHEET. PT LIES SUPINE IN BED WITH HOB ELEVATED; APPEARS TO BE RESTING COMFORTABLY. VITAL SIGNS STABLE.
--- NOTE | 2021-08-24 11:21 | NUR ---
PT RESTLESS AND AGITATED. STATES SHE WANTS TO GO HOME. THIS NURSE EXPLAINED TO PT THAT SHE IS NOT YET MEDICALLY STABLE AND IS STILL REQUIRING NITRO GTT FOR HTN. PT VERBALLY ABUSIVE TOWARDS THIS NURSE AND WITH ANCILLARY STAFF WELL. THIS NURSE EXPLAINED TO PT THAT HER BEHAVIOR TOWARDS STAFF IS NOT ACCEPTABLE. PT REFUSES TO WEAR BIPAP DESPITE DR. SOLANO HAVING CONVERSATION WITH HER ABOUT THE IMPORTANCE OF WEARING IT. PT LIES IN BED WITH HOB ELEVATED AND BED ALARM ON.
--- NOTE | 2021-08-24 12:52 | NUR ---
Patient refused to have PICC dressing change done and pulled back as indicated.
--- NOTE | 2021-08-24 15:27 | NUR ---
Met with patient this morning. When I entered the room, she was crying stating she missed her and wanted staff to call her neighbor so she could talk to him as he doesn't have his own phone. I told her I would notify her nurse and we would see what we can do. I then asked her if we could talk and she asked to use the commode first. I assisted the patient to the commode and back to bed. We then proceeded to discuss what keeps bring the patient in to the hospital and what we can do to help her succeed at home. She repeated she missed her but knows she needs someone to take care of her because he can't and the nephew that was living with them is currently in group home. She stated money has been the reason she hasn't gone to live with her son in [place] and that she doesn't want to leave her . Patient agreed that she doesn't want CPR and doesn't like the idea of a ventilator but when asked again about what kind of care she wants or if she is able to follow through with discharge instructions and plan, she asked for something for her nerves and for me to leave. She also stated she needs something for her nerves before I come back but wants to leave today. I notified primary nurse of our discussion and assistance to the commode.
[2021-08-25] VITALS (407 sets, daily range): BP systolic 117–132; BP diastolic 58–59; PULSE 73–84; TEMP 97.7; O2SAT 66–100
[2021-08-25 05:56] LABS: GRAN # 10.3 K/mm3 (1.4-6.5); GRAN % 93.8 % (42.2-75.2); LYMPH # 0.4 K/mm3 (1.2-3.4); LYMPH % 3.2 % (20.0-51.0); MEAN CELL VOLUME 85 fl (80.0-100.0); MEAN CORPUSCULAR HGB CONC 32 g/dl (33.0-37.0); MONO # 0.3 K/mm3 (0.1-0.6); MONO % 2.5 % (1.7-9.3); PLATELET COUNT 318 K/mm3 (130-400); RED BLOOD COUNT 3.44 M/mm3 (4.10-5.30); REDCELL DISTRIBUTION WIDTH-CV 15.4 % (11.5-14.5)
[2021-08-25 05:59] LABS: HEMATOCRIT 29.1 % (37.0-47.0); HEMOGLOBIN 9.2 g/dl (12.5-16.0); MEAN CORPUSCULAR HEMOGLOBIN 27 pg (27-31)
[2021-08-25 06:04] LABS: ALBUMIN 3.2 gm/dL (3.4-4.8); CALCIUM 8.6 mg/dL (8.4-10.2); CREATININE, serum 2.44 mg/dL (0.57-1.11); PHOSPHOROUS 3.8 mg/dL (2.3-4.7)
--- NOTE | 2021-08-25 08:00 | NUR ---
PT CONTINUES TO BE UNCOOPERATIVE WITH STAFF AND WITH TREATMENTS. REFUSED TO WEAR BIPAP OVERNIGHT AND REFUSED BREATHING TREATMENT AGAIN THIS AM. DR. SOLANO AND DR. YOO HAVE SPOKEN IN DEPTH WITH PT AND EXPLAINTED THE IMPORTANCE OF BEING COMPLIANT WITH TREATMENT. PT BECAME AGITATED WITH BOTH DR. SOLANO AND DR. YOO WHILE THEY WERE SPEAKING WITH HER AND SHE EVENTUALLY BEGAN TO YELL AND MADE THEM EACH LEAVE HER ROOM. PT IS VERBALLY ABUSIVE TOWARDS THIS NURSE AND ANCILLARY STAFF WHEN TRYING TO ASSIST HER. STATES REPEATEDLY THAT SHE IS GOING TO GO HOME TODAYL.
[2021-08-25] MEDS ORDERED: NORVASC 5MG5 MG/TAB PO (11:43)
--- NOTE | 2021-08-25 12:04 | NUR ---
DR SOLANO SPOKE WITH PT, PT WAS AGREEABLE TO HAVING ABG CONDUCTED. UPON ENTERING THE ROOM PT STATED THAT SHE TOLD THE DR NO, AND WAS QUITE UPSET AND SAID SHE WOULD NOT HAVE AN ABG DONE.
--- NOTE | 2021-08-25 13:31 | NUR ---
PT YELLED FROM ROOM MULTIPLE TIMES "I WANT TO GO HOME NOW". DR. YOO, HOSPITALIST NOTIFIED AND VISITED WITH PATIENT EXPLAINING NECESSITY OF STAYING IN THE HOSPITAL. PATIENT'S RESPONSE, "I DONT CARE, I WANT TO LEAVE NOW!" PATIENT ADVISED OF RISKS WITH LEAVING AGAINST MEDICAL ADVISE. PATIENT SIGNS FORM. ALLOWS RN TO REMOVE PICC. PATIENT THEN GETS DRESSED. BOYFRIEND IN ROUTE TO TAKE PATIENT HOME. PATIENT REFUSED TO WAIT IN ROOM WANTS TO LEAVE. PT LEAVES ICU AT 1210.
--- NOTE | 2021-08-26 08:56 | NUR ---
The patient left AMA yesterday, 08/25. GABY made an APS report. Intake ID#[id number]. GABY contacted the patient's son/DPOA-HC, Josue, to update. Josue states that the hospital staff did notify him of this yesterday. He states that he still plans on coming to [place] to talk to the patient about having her come and stay with him in [place]. He is hopeful she will agreeable. He states that his uncle and him have talked about coming to [place] next week. He had no other questions for GABY at this time.
== END 2021-08-25 12:18 | disposition left against medical advice (07) | DRG 871 ==
LOC: COL.ER 04:50 → SURG 07:01 → ICU 07:01
PROVIDERS: Emergency Medicine; Internal Medicine; Internal Medicine Pulmonary Disease; ADMIT Internal Medicine
PROC: 02HV33Z Insertion of Infusion Device into Superior Vena Cava, Percutaneous Approach (ICD-10-PCS; principal; 2021-08-23)
DX: A41.9 Sepsis, unspecified organism (principal); J96.21 Acute and chronic respiratory failure with hypoxia; I50.33 Acute on chronic diastolic (congestive) heart failure; I21.4 Non-ST elevation (NSTEMI) myocardial infarction; J96.22 Acute and chronic respiratory failure with hypercapnia; J44.1 Chronic obstructive pulmonary disease with (acute) exacerbation; I42.8 Other cardiomyopathies; N17.9 Acute kidney failure, unspecified; I16.1 Hypertensive emergency; E87.2 Acidosis; G93.40 Encephalopathy, unspecified; Z66 Do not resuscitate; I11.0 Hypertensive heart disease with heart failure; I25.10 Atherosclerotic heart disease of native coronary artery without angina pectoris; F17.210 Nicotine dependence, cigarettes, uncomplicated; F15.10 Other stimulant abuse, uncomplicated; E87.6 Hypokalemia; D64.9 Anemia, unspecified; Z86.73 Personal history of transient ischemic attack (TIA), and cerebral infarction without residual deficits; Z91.14 Patient's other noncompliance with medication regimen; Z20.822 Contact with and (suspected) exposure to COVID-19
CPT/HCPCS: 99223-AI; 99232-AI; 99239; C1751; J0696; J1644; J1940; J2060; J2920; J2930; J7030; J7050

== ENCOUNTER 2021-10-03 23:35 | Inpatient (IN) | payer MEDICAID ==
[~2021-10-03] VITALS: Ht 157.5 cm; Wt 52.3 kg
[2021-10-04] VITALS (370 sets, daily range): BP systolic 151–191; BP diastolic 82–111; PULSE 75–76; TEMP 96.6–97.8; O2SAT 76–100
[2021-10-04 00:08] LABS: ARTERIAL BLD GAS O2 SATURATION 99.6 % (92-100); ARTERIAL BLD GAS TCO2 CT 23.2; ARTERIAL BLOOD GAS BASE EXCESS -5.7 (-2-2); ARTERIAL BLOOD GAS HCO3 21.7 meq/L (22-26); ARTERIAL BLOOD GAS PCO2 50.3 mmHg (35-45); ARTERIAL BLOOD GAS pH 7.25 (7.35-7.45)
[2021-10-04 00:09] LABS: ARTERIAL BLOOD GAS PO2 378.4 mmHg (80-100)
[2021-10-04 00:49] LABS: BASO # 0.1 K/mm3 (0.0-0.2); BASO % 0.6 % (0.0-2.0); EOS # 0.1 K/mm3 (0.0-0.7); EOS % 0.9 % (0.0-4.0); GRAN # 10.3 K/mm3 (1.4-6.5); GRAN % 76.8 % (42.2-75.2); HEMATOCRIT 41.4 % (37.0-47.0); HEMOGLOBIN 12.8 g/dl (12.5-16.0); LYMPH # 1.7 K/mm3 (1.2-3.4); LYMPH % 12.4 % (20.0-51.0); MEAN CELL VOLUME 86 fl (80.0-100.0); MEAN CORPUSCULAR HEMOGLOBIN 27 pg (27-31); MEAN CORPUSCULAR HGB CONC 31 g/dl (33.0-37.0); MEAN PLATELET VOLUME 10.2 fl (7.4-10.4); MONO # 1.2 K/mm3 (0.1-0.6); MONO % 8.9 % (1.7-9.3); PLATELET COUNT 417 K/mm3 (130-400); RED BLOOD COUNT 4.82 M/mm3 (4.10-5.30); REDCELL DISTRIBUTION WIDTH-CV 14.9 % (11.5-14.5)
[2021-10-04 00:59] LABS: ALBUMIN 3.6 gm/dL (3.4-4.8); BILIRUBIN,TOTAL 0.5 mg/dL (0.2-1.2); CALCIUM 9.2 mg/dL (8.4-10.2); CREATININE, serum 1.41 mg/dL (0.57-1.11); TOTAL PROTEIN 7.6 gm/dL (6.2-8.1)
[2021-10-04 01:16] LABS: TROPONIN-I 0.084 ng/mL (0.00-0.033)
--- NOTE | 2021-10-04 02:54 | NUR ---
Patient arrived to ICU 7 at 0210. Patient obtunded. Able to answer very minimal questions. On bipap. UNABLE TO COMPLETE MED REC at this time. VS stable. Doreen WEBBN notified of patients arrival. Assessment complete and charted.
[2021-10-04 03:19] LABS: ARTERIAL BLD GAS O2 SATURATION 98.9 % (92-100); ARTERIAL BLD GAS TCO2 CT 25.5; ARTERIAL BLOOD GAS BASE EXCESS -0.9 (-2-2); ARTERIAL BLOOD GAS HCO3 24.2 meq/L (22-26); ARTERIAL BLOOD GAS pH 7.38 (7.35-7.45)
[2021-10-04 03:21] LABS: ARTERIAL BLOOD GAS PO2 147.2 mmHg (80-100)
[2021-10-04 04:49] LABS: TRICYCLIC ANTIDEPRESS URINE NEGATIVE
[2021-10-04 05:23] LABS: ACETAMINOPHEN < 1.0 ug/mL (10-30); ALCOHOL(ethanol),MEDICAL < 10 mg/dL (0-10); SALICYLATE < 5.0 mg/dL (15.0-30.0)
--- NOTE | 2021-10-04 06:05 | NUR ---
Patient had uneventful night. Patient uncooperative with staff during night by pushing and hitting hands away when staff attempting to assist patient. Attempted to remove bipap during night. Educated patient on purpose of treatment. Resting in bed asleep this AM.
--- NOTE | 2021-10-04 07:03 | NUR ---
Report given to HUEY Weaver
--- NOTE | 2021-10-04 08:13 | NUR ---
REPORT RECEIVED FROM HUEY LIU. PT ADMITTED FROM ER EARLY THIS AM AFTER BEING FOUND BY FRIEND. PT WEARS BIPAP AT THIS TIME; APPEARS TO BE RESTING COMFORTABLY AND DOES NOT PARTICIPATE IN REPORT. 20G PIV TO LEFT AC AND RIGHT AC. FC TO DEPENDENT DRAINAGE. BP ELEVATED AT THIS TIME; PT HAS ANTIHYPERTENSIVES SCHEDULED FOR 0800.
--- NOTE | 2021-10-04 08:21 | NUR ---
PT NON-COOPERATIVE WITH STAFF; YELLS OUT AND SWINGS ARMS WHEN SHE DOES NOT GET HER WAY. PT REFUSED BREATHING TREATMENT AND LOVENOX; THIS NURSE EDUCATED HER ON IMPORTANCE OF MEDICATION AND PT STILL REFUSED. PT REFUSES TO LEAVE BP CUFF ON; THIS NURSE EXPLAINED IMPORTANCE OF TAKING FREQUENT BLOOD PRESSURE DUE TO BP BEING DANGEROUSLY ELEVATED; PT STATES "I DON'T GIVE A FUCK WHAT IT IS, I'M NOT KEEPING IT ON." THIS NURSE TELLS PT SHE WILL COME BACK IN 30 MINUTES TO RECHECK BLOOD PRESSURE.
--- NOTE | 2021-10-04 14:15 | NUR ---
PT CONTINUES TO BE VERBALLY ABUSIVE WITH STAFF. STATES "I'M NOT DOING ANY OF YOUR TESTS YOU DUMB BITCH." WHEN ASKED TO KEEP BLOOD PRESSURE CUFF ON. PT IS ALSO NOW PHYSICALLY ABUSIVE WITH STAFF; SWINGING AT AND PINCHING STAFF. DR. LUCIANO NOTIFIED.
--- NOTE | 2021-10-04 14:30 | NUR ---
PT AGGRESSIVE AND THROWING OBJECTS AT STAFF. USES INAPPROPRIATE LANGUAGE. PT STATES SHE WANTS TO GO HOME AND SHE WANTS TO LEAVE NOW. THIS NURSE CONTACTED PT'S SON; AZAR STATES HE WILL FIND PT A RIDE AND CALL US BACK.
--- NOTE | 2021-10-04 14:45 | NUR ---
Patient has continually been yelling out and and constantly on the call light, she won't leave her tele leads on or her blood pressure cuff, as I was entering her room she threw her water cup at me and continued screaming. Security was called at this time. She pulled out her right AC INT, it was hanging by a bandaid. Patient is wanting to leave AMA. I discontinued her left AC INT and her sevilla, and assisted her in getting dressed.
[2021-10-04] MEDS ORDERED: ZESTRIL 10MG10 MG PO (15:04)
--- NOTE | 2021-10-04 15:04 | NUR ---
Patient signed her AMA paperwork, waiting for her ride at this time.
[2021-10-04] MEDS ORDERED: OMNICEF 300MG300 MG PO ×2 (15:05)
[2021-10-04] MEDS ORDERED: DOXYCYCLINE HY100 MG PO ×2 (15:05)
--- NOTE | 2021-10-04 15:05 | NUR ---
PT'S SON AZAR CALLS THIS NURSE AND STATES A RIDE WILL BE HERE FOR THE PT IN ABOUT 20 MINUTES.
[2021-10-04] MEDS ORDERED: PREDNISONE10 MG PO (15:08)
--- NOTE | 2021-10-04 15:24 | NUR ---
Software Testing Specialist notified that patient is leaving AMA. SW made report to Adult Protective Services (intake#[id number]).
--- NOTE | 2021-10-04 15:46 | NUR ---
Pt's boyfriend arrives at this time to take pt home. Pt understands she is leaving AMA and has signed AMA paperwork. Refused to get dressed prior to leaving; leaves with gown and pants on, but no shoes. Pt escorted out of facility by security.
[2021-10-05] MEDS ORDERED: AMOXICILLIN 8751 TAB PO ×2 (13:01)
[2021-10-05] MEDS ORDERED: DOXYCYCLINE 10100 MG PO (13:01)
--- NOTE | 2021-10-05 13:17 | NUR ---
Call recieved from Lab this AM that patient had (+) blood cultures. Dr. He and TESS Lott made aware of patients results as patient does not list PCP on admission
[2021-10-05] MEDS ORDERED: OMNICEF 300MG300 MG PO (13:32)
--- NOTE | 2021-10-12 09:19 | NUR ---
Dr. He notified of patient's blood culture results although patient left AMA.
== END 2021-10-04 15:46 | disposition left against medical advice (07) | DRG 280 ==
LOC: COL.ER 23:35 → ICU 10-04 01:45 → EDBEDREQ 10-04 01:58 → ICU 10-04 15:46
PROVIDERS: Emergency Medicine; Nurse Practitioner Family; ADMIT Student in an Organized Health Care Education/Training Program
DX: I13.0 Hypertensive heart and chronic kidney disease with heart failure and stage 1 through stage 4 chronic kidney disease, or unspecified chronic kidney disease (principal); J96.21 Acute and chronic respiratory failure with hypoxia; I21.4 Non-ST elevation (NSTEMI) myocardial infarction; I50.33 Acute on chronic diastolic (congestive) heart failure; J96.22 Acute and chronic respiratory failure with hypercapnia; J44.1 Chronic obstructive pulmonary disease with (acute) exacerbation; E87.2 Acidosis; I16.1 Hypertensive emergency; I42.8 Other cardiomyopathies; I25.10 Atherosclerotic heart disease of native coronary artery without angina pectoris; R73.9 Hyperglycemia, unspecified; F17.210 Nicotine dependence, cigarettes, uncomplicated; N18.9 Chronic kidney disease, unspecified; F15.10 Other stimulant abuse, uncomplicated; B97.29 Other coronavirus as the cause of diseases classified elsewhere; I42.0 Dilated cardiomyopathy; Z86.73 Personal history of transient ischemic attack (TIA), and cerebral infarction without residual deficits; Z91.14 Patient's other noncompliance with medication regimen; Z88.0 Allergy status to penicillin; Z79.82 Long term (current) use of aspirin; Z20.822 Contact with and (suspected) exposure to COVID-19
CPT/HCPCS: 99223-AI; 99239; J0360; J0456; J0692; J0696; J1940; J2250; J2920; J2930; J7050

== ENCOUNTER 2022-02-08 22:01 | Inpatient (IN) | payer MEDICAID ==
[~2022-02-08] VITALS: Ht 160 cm; Wt 46.4 kg
[~2022-02-08 22:01] MED LIST changes: +AMOXICILLIN 8751 TAB PO; +DOXYCYCLINE HY100 MG PO
[2022-02-08 22:19] LABS: BASO # 0.2 K/mm3 (0.0-0.2); BASO % 0.8 % (0.0-2.0); EOS # 0.3 K/mm3 (0.0-0.7); EOS % 1.7 % (0.0-4.0); GRAN # 13.4 K/mm3 (1.4-6.5); GRAN % 70.8 % (42.2-75.2); HEMATOCRIT 47.5 % (37.0-47.0); HEMOGLOBIN 14.3 g/dl (12.5-16.0); LYMPH # 3.5 K/mm3 (1.2-3.4); LYMPH % 18.3 % (20.0-51.0); MEAN CELL VOLUME 84 fl (80.0-100.0); MEAN CORPUSCULAR HEMOGLOBIN 25 pg (27-31); MEAN CORPUSCULAR HGB CONC 30 g/dl (33.0-37.0); MEAN PLATELET VOLUME 9.8 fl (7.4-10.4); MONO # 1.5 K/mm3 (0.1-0.6); MONO % 7.9 % (1.7-9.3); PLATELET COUNT 530 K/mm3 (130-400); RED BLOOD COUNT 5.67 M/mm3 (4.10-5.30); REDCELL DISTRIBUTION WIDTH-CV 17.4 % (11.5-14.5)
[2022-02-08 22:20] LABS: ARTERIAL BLD GAS O2 SATURATION 99.3 % (92-100); ARTERIAL BLD GAS TCO2 CT 24.9; ARTERIAL BLOOD GAS BASE EXCESS -5.5 (-2-2); ARTERIAL BLOOD GAS HCO3 23.1 meq/L (22-26); ARTERIAL BLOOD GAS PCO2 58.2 mmHg (35-45); ARTERIAL BLOOD GAS pH 7.22 (7.35-7.45)
[2022-02-08 22:29] LABS: INR 0.9 (0.8-3.0); PROTHROMBIN TIME 10.3 SECONDS (9.7-12.8)
[2022-02-08 22:31] LABS: PARTIAL THROMBOPLASTIN TIME 27.6 SECONDS (26.0-37.0)
[2022-02-08 22:35] LABS: ALBUMIN 4.2 gm/dL (3.4-4.8); BILIRUBIN,TOTAL 0.5 mg/dL (0.2-1.2); CALCIUM 10.1 mg/dL (8.4-10.2); CREATININE, serum 1.44 mg/dL (0.57-1.11); POTASSIUM 3.6 mmol/L (3.5-4.5); TOTAL PROTEIN 9.2 gm/dL (6.2-8.1)
[2022-02-08 22:42] LABS: TROPONIN-I 0.074 ng/mL (0.00-0.033)
[2022-02-09] VITALS (860 sets, daily range): BP systolic 130–246; BP diastolic 67–118; PULSE 60–91; TEMP 97.1–98.2; O2SAT 57–100
[2022-02-09 04:28] LABS: MEAN CELL VOLUME 83 fl (80.0-100.0); MEAN CORPUSCULAR HEMOGLOBIN 26 pg (27-31); MEAN CORPUSCULAR HGB CONC 31 g/dl (33.0-37.0); MEAN PLATELET VOLUME 9.5 fl (7.4-10.4); RED BLOOD COUNT 5.05 M/mm3 (4.10-5.30); REDCELL DISTRIBUTION WIDTH-CV 17.2 % (11.5-14.5)
[2022-02-09 04:33] LABS: COLLECTION METHOD CATHETER
[2022-02-09 04:35] LABS: MUCOUS Present (NOT PRESENT); SQUAMOUS EPITHELIAL None Seen /hpf (0-10); TRICYCLIC ANTIDEPRESS URINE NEGATIVE; URINE BACTERIA Rare /hpf (NONE SEEN); URINE RBC 0-2 /hpf (0-2)
[2022-02-09 04:36] LABS: PH 6.5 (5.0-8.5); URINE APPEARANCE Clear (CLEAR/HAZY); URINE COLOR Yellow (YELLOW); URINE GLUCOSE Negative (NEGATIVE); URINE KETONE Negative (NEGATIVE); URINE NITRATE Negative (NEGATIVE); URINE PROTEIN(semi-quant) 2+ (NEGATIVE); URINE UROBILINOGEN 0.2 E.U/dL (0.2-1.0)
[2022-02-09 04:37] LABS: URINE BLOOD TRACE-INTACT (NEGATIVE)
[2022-02-09 04:47] LABS: PLATELET COUNT 417 K/mm3 (130-400)
[2022-02-09 05:00] LABS: CALCIUM 9.9 mg/dL (8.4-10.2); CREATININE, serum 1.55 mg/dL (0.57-1.11); MAGNESIUM 2.5 mg/dL (1.6-2.6); POTASSIUM 3.8 mmol/L (3.5-4.5)
[2022-02-09 05:16] LABS: TROPONIN-I 6 HR POST INITIAL 0.116 ng/mL (0.00-0.033)
[2022-02-09 06:11] LABS: BAND 2 % (0-10); LYMPHOCYTE 3 % (20.0-51.0); NEUTROPHILS 94 % (42.0-75.2)
[2022-02-09 06:12] LABS: ANISOCYTOSIS 1+; PLATELET ESTIMATE INCREASED (NORMAL)
[2022-02-10] MEDS ORDERED: ZITHROMAX500 M2 PO (10:13)
[2022-02-10] MEDS ORDERED: MEDROL 4MG DOSPA4 MG PO (10:15)
[2022-02-10] MEDS ORDERED: OMNICEF 300MG300 MG PO (10:16)
== END 2022-02-10 11:00 | disposition left against medical advice (07) | DRG 871 ==
LOC: COL.ER 22:01 → ICU 23:03 → MEDICAL 23:03
PROVIDERS: Emergency Medicine; Student in an Organized Health Care Education/Training Program; ADMIT Internal Medicine
DX: A41.9 Sepsis, unspecified organism (principal); J18.9 Pneumonia, unspecified organism; J96.22 Acute and chronic respiratory failure with hypercapnia; J96.21 Acute and chronic respiratory failure with hypoxia; I50.33 Acute on chronic diastolic (congestive) heart failure; J44.1 Chronic obstructive pulmonary disease with (acute) exacerbation; I13.0 Hypertensive heart and chronic kidney disease with heart failure and stage 1 through stage 4 chronic kidney disease, or unspecified chronic kidney disease; I42.0 Dilated cardiomyopathy; R65.10 Systemic inflammatory response syndrome (SIRS) of non-infectious origin without acute organ dysfunction; Z20.822 Contact with and (suspected) exposure to COVID-19; F41.9 Anxiety disorder, unspecified; I25.10 Atherosclerotic heart disease of native coronary artery without angina pectoris; F17.210 Nicotine dependence, cigarettes, uncomplicated; R73.9 Hyperglycemia, unspecified; I16.0 Hypertensive urgency; F19.10 Other psychoactive substance abuse, uncomplicated; R51.9 Headache, unspecified; N18.30 Chronic kidney disease, stage 3 unspecified; F15.10 Other stimulant abuse, uncomplicated; Z53.21 Procedure and treatment not carried out due to patient leaving prior to being seen by health care provider; I25.2 Old myocardial infarction; Z86.73 Personal history of transient ischemic attack (TIA), and cerebral infarction without residual deficits; Z91.14 Patient's other noncompliance with medication regimen; Z88.0 Allergy status to penicillin; Z79.82 Long term (current) use of aspirin
CPT/HCPCS: J0456; J0692; J1644; J1940; J2250; J2920; J2930; J3370; J7050

== ENCOUNTER 2022-04-15 16:33 | Emergency (ER) | payer MEDICAID ==
[~2022-04-15] VITALS: Ht 154.9 cm; Wt 54.6 kg
[~2022-04-15 16:33] MED LIST changes: +ZITHROMAX500 M2 PO
[2022-04-15 16:35] VITALS: TEMP 98
[2022-04-15 17:09] LABS: BASO # 0.1 K/mm3 (0.0-0.2); BASO % 0.8 % (0.0-2.0); EOS # 0.2 K/mm3 (0.0-0.7); EOS % 1.8 % (0.0-4.0); GRAN # 7.4 K/mm3 (1.4-6.5); GRAN % 74.3 % (42.2-75.2); HEMOGLOBIN 11.1 g/dl (12.5-16.0); LYMPH # 1.3 K/mm3 (1.2-3.4); LYMPH % 12.7 % (20.0-51.0); MEAN CELL VOLUME 82 fl (80.0-100.0); MEAN CORPUSCULAR HEMOGLOBIN 27 pg (27-31); MEAN CORPUSCULAR HGB CONC 33 g/dl (33.0-37.0); MEAN PLATELET VOLUME 9.3 fl (7.4-10.4); MONO % 10.2 % (1.7-9.3); PLATELET COUNT 344 K/mm3 (130-400); RED BLOOD COUNT 4.18 M/mm3 (4.10-5.30); REDCELL DISTRIBUTION WIDTH-CV 15.9 % (11.5-14.5)
[2022-04-15 17:12] LABS: HEMATOCRIT 34.2 % (37.0-47.0)
[2022-04-15 17:15] LABS: PROTHROMBIN TIME 11.3 SECONDS (9.7-12.8)
[2022-04-15 17:17] LABS: PARTIAL THROMBOPLASTIN TIME 33.9 SECONDS (26.0-37.0)
[2022-04-15 17:27] LABS: BILIRUBIN,TOTAL 0.5 mg/dL (0.2-1.2); CALCIUM 9.7 mg/dL (8.4-10.2); CREATININE, serum 0.95 mg/dL (0.57-1.11); POTASSIUM 3.9 mmol/L (3.5-4.5); TOTAL PROTEIN 7.8 gm/dL (6.2-8.1)
[2022-04-15 17:33] LABS: TROPONIN-I 0.051 ng/mL (0.00-0.033)
[2022-04-15] MEDS ORDERED: PREDNISONE20 MG PO (17:42)
[2022-04-15 17:55] VITALS: BP 147/90; PULSE 77
== END 2022-04-15 17:55 | disposition home or self-care (01) ==
LOC: COL.ER 16:33
PROVIDERS: Emergency Medicine
DX: J44.1 Chronic obstructive pulmonary disease with (acute) exacerbation (principal); R77.8 Other specified abnormalities of plasma proteins; R79.89 Other specified abnormal findings of blood chemistry; Z20.822 Contact with and (suspected) exposure to COVID-19; Z28.310 Unvaccinated for COVID-19
CPT/HCPCS: J2930

== ENCOUNTER 2022-05-06 23:33 | Emergency (ER) | payer MEDICAID ==
[~2022-05-06] VITALS: Ht 152.4 cm; Wt 49.1 kg
[2022-05-06 23:36] VITALS: TEMP 99
[2022-05-06 23:57] LABS: BASO # 0.1 K/mm3 (0.0-0.2); BASO % 0.9 % (0.0-2.0); EOS # 0.2 K/mm3 (0.0-0.7); EOS % 2.2 % (0.0-4.0); GRAN # 7.2 K/mm3 (1.4-6.5); GRAN % 70.9 % (42.2-75.2); HEMOGLOBIN 10.5 g/dl (12.5-16.0); LYMPH # 1.5 K/mm3 (1.2-3.4); MEAN CELL VOLUME 83 fl (80.0-100.0); MEAN CORPUSCULAR HEMOGLOBIN 26 pg (27-31); MEAN CORPUSCULAR HGB CONC 31 g/dl (33.0-37.0); MEAN PLATELET VOLUME 9.1 fl (7.4-10.4); MONO # 1.1 K/mm3 (0.1-0.6); MONO % 10.7 % (1.7-9.3); PLATELET COUNT 450 K/mm3 (130-400); RED BLOOD COUNT 4.04 M/mm3 (4.10-5.30); REDCELL DISTRIBUTION WIDTH-CV 14.8 % (11.5-14.5)
[2022-05-07 00:03] LABS: HEMATOCRIT 33.7 % (37.0-47.0)
[2022-05-07 00:06] LABS: INR 1.1 (0.8-3.0); PROTHROMBIN TIME 12.2 SECONDS (9.7-12.8)
[2022-05-07 00:15] LABS: ALBUMIN 3.3 gm/dL (3.4-4.8); BILIRUBIN,TOTAL 0.5 mg/dL (0.2-1.2); CALCIUM 9.1 mg/dL (8.4-10.2); CREATININE, serum 0.97 mg/dL (0.57-1.11); POTASSIUM 3.6 mmol/L (3.5-4.5); TOTAL PROTEIN 7.3 gm/dL (6.2-8.1)
[2022-05-07 00:25] LABS: TROPONIN-I 0.069 ng/mL (0.00-0.033)
[2022-05-07 01:30] VITALS: BP 226/184; PULSE 80
== END 2022-05-07 01:43 | disposition left against medical advice (07) ==
LOC: COL.ER 23:33
PROVIDERS: Emergency Medicine
DX: I13.0 Hypertensive heart and chronic kidney disease with heart failure and stage 1 through stage 4 chronic kidney disease, or unspecified chronic kidney disease (principal); I50.9 Heart failure, unspecified; N18.9 Chronic kidney disease, unspecified; J44.9 Chronic obstructive pulmonary disease, unspecified; R77.8 Other specified abnormalities of plasma proteins; F17.200 Nicotine dependence, unspecified, uncomplicated; Z28.310 Unvaccinated for COVID-19; Z87.09 Personal history of other diseases of the respiratory system